=== PATIENT | male | born 1950 | race African-American/Black ===

== ENCOUNTER → 2018-02-08 | Outpatient (CLI) | payer MEDICARE ==
[~2018-02-08] MED LIST: ELET20TA PO; LOVA20TA2 PO; NAPR220C4 PO; SILO8CAP PO
--- NOTE | 2018-02-08 15:03 | RAD ---
Thyroid ultrasound, 02/08/2018: HISTORY: Thyromegaly The right lobe of the gland measures 4.2 x 2.2 x 2.3 cm while the left lobe of the gland measures 4.2 x 1.6 x 2.1 cm. The thyroid gland is mildly heterogeneous. There is a 5 mm smooth oval shaped nodule in the anterior aspect of the left lobe of the gland. There are mildly heterogeneous internal echoes with internal color flow. No internal calcifications are seen. This nodule is wider than tall. It has a benign appearance. There is an oval-shaped hypoechoic nodule in the posterior aspect of the lower pole right lobe of the gland. It measured 12 x 5 x 7 mm. It is wider than tall. Its margins appear smooth. Just superior to this level there is a 6 mm anechoic nodule suggesting a cyst. Both of these right nodules are suboptimally defined due to their far posterior positions. No calcifications are seen. IMPRESSION: Multinodular thyroid gland as described above. Sonographic follow-up of the dominant hypoechoic nodule in the lower pole of the right lobe is suggested. Electronically signed by: Juliano Henry MD (02/08/2018 3:00 PM) [facility]
--- NOTE | 2018-02-08 15:49 | RAD ---
CT of the chest is without contrast 02/08/2018 INDICATION: Thyromegaly COMPARISON STUDY: CT angiography of the chest November 01, 2014 Discussion: Multidetector CT imaging of the chest was performed without the administration of IV contrast. FINDINGS: Heart size is normal. No pericardial effusion is identified. No mediastinal adenopathy is seen. Thyroid is heterogenous in attenuation with a left-sided nodule. Refer to dedicated thyroid ultrasound performed the same day for further evaluation. There is no pneumothorax, pleural effusion, or focal consolidative infiltrate. Multiple small 5 mm and smaller pulmonary nodules are seen throughout the bilateral lungs. Some of these nodules are calcified. Nodules are stable with respect to comparison study. Stability over this time suggests benign etiology such as prior granulomatous disease. Multiple hepatic hypodensities are noted the attenuation characteristics of which suggests hepatic cysts. Left renal cyst is again noted. No acute abnormalities of the upper abdomen are seen. No acute osseous abnormalities are seen. IMPRESSION: 1. No acute cardiopulmonary process or change from prior exam is identified. 2. Multiple small noncalcified pulmonary nodules bilaterally. Other small calcified nodules are seen. The small nodules which have been stable since comparison study suggest a benign etiology such as prior granulomatous disease. CT DOSING PQRS STATEMENT: One or more of the following individualized dose reduction techniques were utilized for this examination: 1. Automated exposure control 2. Adjustment of the mA and/or kV according to patient size 3. Use of iterative reconstruction technique Electronically signed by: Spencer Mccracken MD (02/08/2018 3:46 PM) [facility]
== END | disposition home or self-care (01) ==
LOC: US 12:37
PROVIDERS: ATTEND Nurse Practitioner Family
DX: E04.2 Nontoxic multinodular goiter (principal); R06.02 Shortness of breath; R07.89 Other chest pain; R05 Cough; R91.8 Other nonspecific abnormal finding of lung field; N28.1 Cyst of kidney, acquired; R19.7 Diarrhea, unspecified
CPT/HCPCS: 71250; 76536

== ENCOUNTER 2019-01-31 12:16 | Observation (INO) | payer MEDICARE ==
[~2019-01-31] VITALS: Ht 190.5 cm; Wt 95.7 kg
[~2019-01-31 12:16] MED LIST changes: -SILO8CAP PO; +SILO8CAP2 PO
[2019-01-31 12:42] VITALS: BP 118/75
[2019-01-31] MEDS ORDERED: ACETAMINOPHEN 325 MG TABLET PO PRN (12:45)
[2019-01-31] MEDS ORDERED: NITROGLYCERIN SUBLINGUAL 0.4 MG BOTTLE OF 25. SL PRN (12:45)
[2019-01-31] MEDS ORDERED: ZOLPIDEM 5 MG TABLET. PO PRN (12:45)
[2019-01-31 13:02] LABS: BASO % 1 % (0-3); EOS # 0.2 x10^3/uL (0.0-0.7); EOS % 4 % (0-3); HEMATOCRIT 38.2 % (39.0-53.0); HEMOGLOBIN 12.5 g/dL (13.0-17.5); LYMPH # 0.7 x10^3/uL (1.0-4.8); LYMPH % 16 % (24-48); MEAN CORPUSCULAR HEMOGLOBIN 26 pg (25-35); MEAN CORPUSCULAR HGB CONC 33 g/dL (31-37); MEAN CORPUSCULAR VOLUME 79 fL (79-100); MONO # 0.3 x10^3/uL (0.0-1.1); MONO % 7 % (0-9); NEUT # 3.2 x10^3uL (1.8-7.7); NEUT % 72 % (31-73); PLATELET COUNT 192 x10^3/uL (140-400); RED BLOOD COUNT 4.83 x10^6/uL (4.30-5.70); RED CELL DISTRIBUTION WIDTH 15.3 % (11.5-14.5); WHITE BLOOD COUNT 4.4 x10^3/uL (4.0-11.0)
[2019-01-31 13:15] LABS: ALBUMIN 3.4 g/dL (3.4-5.0); ALBUMIN/GLOBULIN RATIO 1.3 (1.0-1.7); CALCIUM 8.4 mg/dL (8.5-10.1); CREATININE 1.3 mg/dL (0.7-1.3); POTASSIUM 4.3 mmol/L (3.5-5.1); TOTAL BILIRUBIN 0.3 mg/dL (0.2-1.0); TOTAL PROTEIN 6.1 g/dL (6.4-8.2)
--- NOTE | 2019-01-31 13:31 | NUR ---
NSG NOTE; ADMISSION DIRECT ADMIT TO ROOM 123 AT 1230 VIA AMB ACCOMP BY SELF FROM DR JOHNSTON'S OFFICE C/O LEFT UPPER CHEST PAIN INTO LEFT SHOULDER/NECK/HEAD X 5 DAYS
--- NOTE | 2019-01-31 13:33 | NUR ---
NSG NOTE; DR ARAUJO CONSULT CALLED TO MONY BOCANEGRA AT 0623
[2019-01-31] MEDS ORDERED: FLU VAX QS 2019-20 (36MOS+)/PF 0.5 ML SYRINGE. VAX IM ONE (13:45)
[2019-01-31 14:00] VITALS: BP 121/76
[2019-01-31] MEDS: HEPARIN for SUB-Q USE 5,000 UNIT/ML VIAL. SQ SCH ×2 (14:00→20:58)
--- NOTE | 2019-01-31 15:08 | RAD ---
Chest, PA and Lateral: Technique: PA and lateral views of the chest were obtained. History: Chest pain. Comparison: None. Findings: The heart and pulmonary vasculature appear within normal limits. The lungs are clear. The pleural margins are clear. Impression: No acute chest process is seen. Electronically signed by: Vic Morse MD (01/31/2019 3:06 PM) [id number]
--- NOTE | 2019-01-31 17:15 | PDOC2 ---
CONSULT Date of Admission DATE: 01/31/19 TIME: 17:15 Reason for Consult: Chest pain Referring Physician: Dr. Szymanski Chief Complaint Chest pain Source: Chart review, Patient History of Present Illness 68-year-old male presented complaining of left-sided chest and neck pain worse with movement of his neck. He denied any exertional component. He also denied any orthopnea/PND, palpitations or syncope. Cardiovascular: No pertinent hx Family History Negative for premature coronary artery disease ALCOHOL: none Drugs: None Current Medications Current Medications Aspirin (Children'S Aspirin) 325 mg DAILYWBKFT PO ; Start 02/01/19 at 08:00 Nitroglycerin (Nitrostat) 0.4 mg PRN Q5MIN PRN SL CHEST PAIN; Start 01/31/19 at 12:45 Acetaminophen (Tylenol) 650 mg PRN Q6HRS PRN PO PAIN / TEMP; Start 01/31/19 at 12:45 Zolpidem Tartrate (Ambien) 5 mg PRN QHS PRN PO INSOMNIA; Start 01/31/19 at 12:45 Heparin Sodium (Porcine) (Heparin Sodium) 5,000 unit Q8HRS SQ ; Start 01/31/19 at 14:00 Docusate Sodium (Colace) 100 mg DAILY PO ; Start 02/01/19 at 09:00 Influenza Virus Vaccine Quadrival (Afluria Quad 2019-20 (3yr Up) Syringe) 0.5 ml ONCE ONCE VAX IM ; Start 01/31/19 at 13:45; Stop 01/31/19 at 13:48; Status DC Active Scripts Active Reported No Known Medications Prior To Admisstion (Info) Each 1 Each . Allergies: Coded Allergies: Iodinated Contrast Media - IV Dye (Verified Allergy, Unknown, Vomiting, 11/01/14) RX WAS 30 YEARS AGO PSYCHOLOGICAL ROS: No: Hallucinations Eyes: No: Loss of vision HEENT: No: Epistaxis Respiratory: No: Hemoptysis, Shortness of breath Cardiovascular: yes: Chest Pain Gastrointestinal: No: Vomiting, Diarrhea Neurological: No: Seizures Skin: No: Rash General: Alert, No acute distress HEENT: Atraumatic, PERRLA Lungs: Clear to auscultation Heart: Regular rate Abdomen: Soft, No tenderness Extremities: No edema Neuro: Normal speech Psych/Mental Status: Mood NL VITALS Vital Signs Date Time Temp Pulse Resp B/P (MAP) Pulse Ox O2 Delivery O2 Flow Rate FiO2 01/31/19 14:00 97.6 59 20 121/76 (91) 98 Room Air Labs Laboratory Tests Test 01/31/19 12:45 White Blood Count 4.4 x10^3/uL (4.0-11.0) Red Blood Count 4.83 x10^6/uL (4.30-5.70) Hemoglobin 12.5 g/dL (13.0-17.5) Hematocrit 38.2 % (39.0-53.0) Mean Corpuscular Volume 79 fL (79-100) Mean Corpuscular Hemoglobin 26 pg (25-35) Mean Corpuscular Hemoglobin Concent 33 g/dL (31-37) Red Cell Distribution Width 15.3 % (11.5-14.5) Platelet Count 192 x10^3/uL (140-400) Neutrophils (%) (Auto) 72 % (31-73) Lymphocytes (%) (Auto) 16 % (24-48) Monocytes (%) (Auto) 7 % (0-9) Eosinophils (%) (Auto) 4 % (0-3) Basophils (%) (Auto) 1 % (0-3) Neutrophils # (Auto) 3.2 x10^3uL (1.8-7.7) Lymphocytes # (Auto) 0.7 x10^3/uL (1.0-4.8) Monocytes # (Auto) 0.3 x10^3/uL (0.0-1.1) Eosinophils # (Auto) 0.2 x10^3/uL (0.0-0.7) Basophils # (Auto) 0.0 x10^3/uL (0.0-0.2) D-Dimer (Ember) 0.44 mg/L (0.00-0.50) Sodium Level 140 mmol/L (136-145) Potassium Level 4.3 mmol/L (3.5-5.1) Chloride Level 105 mmol/L (98-107) Carbon Dioxide Level 26 mmol/L (21-32) Anion Gap 9 (6-14) Blood Urea Nitrogen 16 mg/dL (8-26) Creatinine 1.3 mg/dL (0.7-1.3) Estimated GFR (Cockcroft-Gault) 66.0 BUN/Creatinine Ratio 12 (6-20) Glucose Level 121 mg/dL (70-99) Calcium Level 8.4 mg/dL (8.5-10.1) Total Bilirubin 0.3 mg/dL (0.2-1.0) Aspartate Amino Transf (AST/SGOT) 10 U/L (15-37) Alanine Aminotransferase (ALT/SGPT) 12 U/L (16-63) Alkaline Phosphatase 61 U/L (46-116) Creatine Kinase 101 U/L (39-308) Troponin I Quantitative < 0.017 ng/mL (0-0.055) Total Protein 6.1 g/dL (6.4-8.2) Albumin 3.4 g/dL (3.4-5.0) Albumin/Globulin Ratio 1.3 (1.0-1.7) Assessment/Plan Chest pain with atypical features and most probably musculoskeletal. Myocardial infarction has been ruled out. Check 2-D echo to assess LV function and rule out wall motion abnormalities. Further ischemic evaluation in the form of stress test could be considered as an outpatient. Thank you for your consultation. PARTH RICE MD Jan 31, 2019 17:15
--- NOTE | 2019-01-31 17:33 | EKG ---
[address] [address] Test Date: 2019-01-31 Test Time: 17:09:35 Pat Name: JEANNETTE VELA Department: Room: 123 A Gender: M Test Analyst: : [id number] Requested By: LESTER JOHNSTON Order Number: [id number] Reading MD: Parker Aguirre MD Measurements Intervals Cisco Rate: 53 P: 33 DC: 168 QRS: 34 QRSD: 90 T: 62 QT: 450 QTc: 425 Interpretive Statements SINUS RHYTHM Electronically Signed On 02-09-2019 9:19:10 CDT by Parker Aguirre MD
[2019-01-31 19:50] VITALS: BP 116/75
[2019-01-31 23:06] VITALS: BP 133/72
[2019-02-01] MEDS: HEPARIN for SUB-Q USE 5,000 UNIT/ML VIAL. SQ SCH (06:00)
[2019-02-01 06:45] VITALS: BP 132/77
[2019-02-01] MEDS ORDERED: ASPIRIN 81 MG TAB.CHEW PO SCH (08:00)
[2019-02-01 08:02] LABS: BACTERIA,URINE 0 /HPF (0-FEW); BILIRUBIN,URINE NEG (NEG); CLARITY,URINE CLEAR; COLOR,URINE YELLOW; GLUCOSE,URINE NEG (NEG); NITRITE,URINE NEG (NEG); RBC,URINE 0 /HPF (0-2); SPERM,URINE PRESENT /HPF; UROBILINOGEN,URINE 0.2 mg/dL (0.2 mg/dL); WBC,URINE 0 /HPF (0-4)
[2019-02-01] MEDS ORDERED: DOCUSATE SODIUM 100 MG CAPSULE PO SCH (09:00)
--- NOTE | 2019-02-01 09:47 | CARD ---
MR#: [id number] Date of Study: 02/01/2019 Ordering Physician: LESTER JOHNSTON, Referring Physician: LESTER JOHNSTON, Tech: Katerina Denise JALIL APPROVED REPORT EXAM: Two-dimensional and M-mode echocardiogram with Doppler and color Doppler. Other Information Quality : GoodHR: 60bpm Rhythm : NSR INDICATION Chest Pain 2D DIMENSIONS RVDd3.0 (2.9-3.5cm)Left Atrium(2D)3.9 (1.6-4.0cm) IVSd1.2 (0.7-1.1cm)Aortic Root(2D)3.0 (2.0-3.7cm) LVDd4.1 (3.9-5.9cm)PWd1.1 (0.7-1.1cm) LVDs2.9 (2.5-4.0cm)FS (%) 30.2 % SV43.8 mlLVEF(%)57.9 (>50%) M-Mode DIMENSIONS Left Atrium(MM)3.92 (2.5-4.0cm)Aortic Root2.86 (2.2-3.7cm) Aortic Valve AoV Peak Garland.110.5cm/sAoV VTI24.6cm AO Peak GR.4.9mmHgAO Mean GR.3mmHg HAYDEN (VTI)3.20cm2 Mitral Valve MV E Zbfqbrnm72.5cm/sMV DECEL GCRK182fx MV A Jqevjhjg83.0cm/sE/A Ratio0.8 MV A Brjpjoht710ry Tricuspid Valve TR P. Dtfpoaen393sm/sRAP KDWQXDKW5loUj TR Peak Gr.53oxCeNAAF44mgHd LEFT VENTRICLE The left ventricle is normal size. There is mild concentric left ventricular hypertrophy. The left ve ntricular systolic function is normal. The Ejection Fraction is 55-60%. There is normal LV segmental wall motion. Transmitral Doppler flow pattern is Grade I-abnormal relaxation pattern. RIGHT VENTRICLE The right ventricle is normal size. There is normal right ventricular wall thickness. The right ventr icular systolic function is normal. ATRIA The left atrium size is normal. The right atrium size is normal. The interatrial septum is intact wit h no evidence for an atrial septal defect or patent foramen ovale as noted on 2-D or Doppler imaging. AORTIC VALVE The aortic valve is calcified but opens well. The aortic valve is trileaflet. Doppler and Color Flow revealed no significant aortic regurgitation. There is no significant aortic valvular stenosis. There is no aortic valvular vegetation. MITRAL VALVE The mitral valve is normal in structure and function. There is no evidence of mitral valve prolapse. There is no mitral valve stenosis. Doppler and Color Flow revealed no mitral valve regurgitation note d. TRICUSPID VALVE The tricuspid valve is normal in structure and function. Doppler and Color Flow revealed mild tricusp id regurgitation. There is no tricuspid valve stenosis. GREAT VESSELS The aortic root is normal in size. PERICARDIAL EFFUSION There is no evidence of significant pericardial effusion. Critical Notification Critical Value: No <Conclusion> The left ventricular systolic function is normal. The Ejection Fraction is 55-60%. There is normal LV segmental wall motion. Transmitral Doppler flow pattern is Grade I-abnormal relaxation pattern. Doppler and Color Flow revealed mild tricuspid regurgitation. There is no evidence of significant pericardial effusion. Signed by : Jorge Adame, Electronically Approved : 02/01/2019 09:47:34
[2019-02-01 10:45] VITALS: BP 106/66
[2019-02-01] MEDS ORDERED: ASPI-630 PO (11:20)
[2019-02-01] MEDS ORDERED: ACET325T9 PO (11:20)
[2019-02-01] MEDS ORDERED: DOCU-109 PO (11:20)
--- NOTE | 2019-02-01 12:07 | NUR ---
Pt verbalizes and understands condition at hospital, pt able to state needs and desires. Pt up as tolerated, non skid socks applied, bed in lowest position. Pt had Echo this morning. Dr. Szymanski discharged pt. Pt instructed to follow up with Dr. Adame to schedule cardiac stress test and carotid doppler scan. Discharge instructions given.
--- NOTE | 2019-02-01 12:09 | NUR ---
Discharge Note: JEANNETTE VELA Discharge instructions and discharge home medications reviewed with Patient and a copy given. All questions have been answered and understanding verbalized. The following instructions and handouts were given: Follow up with Dr. Adame for cardiac stress test and carotid artery scan. Discontinued lines and drains: Discontinued IV, pressure dressing applied, no apparent problems, catheter tip dry and intact. Patient discharged to home.
[2019-02-01 13:58] LABS: THYROID STIM HORMONE (TSH) 1.986 uIU/mL (0.358-3.740)
--- NOTE | 2019-02-06 17:01 | DS ---
DATE OF DISCHARGE: 02/01/2019 HOSPITAL COURSE: A 68-year-old gentleman came in with severe left-sided chest pain radiating to his neck. The patient also denied nausea, vomiting, or diaphoresis. The patient was admitted for rule out [place] protocol. He made good progress. He was slightly anemic at 12.5 and 38. Chemistries demonstrate cardiac enzymes were negative. His triglycerides were elevated at 290, total cholesterol of 228 and LDL 102 with an HDL of 68. Thyroid, TSH was normal. Blood sugar slightly elevated at 121, nonfasting. Liver enzymes are actually on the low side. The patient made excellent progress. He was seen by Dr. Adame. He will follow up with him as a stress test as an outpatient. IMPRESSION: Otherwise, chest pain, unknown etiology, hypercholesterolemia, hypertriglyceridemia. PLAN: The patient will be discharged home on a heart healthy diet, decreased activity, and follow up with Dr. Adame as an outpatient. LESTER JOHNSTON MD DR: VIKA/deacon JOB#: [id number] / [id number]
== END 2019-02-01 12:12 | disposition home or self-care (01) ==
LOC: 1 SOUTH 12:16
PROVIDERS: ADMIT Family Medicine; ATTEND Family Medicine
DX: R07.89 Other chest pain (principal); D64.9 Anemia, unspecified; E78.00 Pure hypercholesterolemia, unspecified; E78.1 Pure hyperglyceridemia; Z23 Encounter for immunization
CPT/HCPCS: 36415; 71046; 80053; 80061; 81001; 82550; 84443; 84484; 85025; 85379; 90471; 90686; 93005; 93306; G0378; G0379

== ENCOUNTER → 2019-02-14 | Outpatient (CLI) | payer MEDICARE ==
[2019-02-01 10:45] VITALS: BP 106/66
[~2019-02-14] MED LIST changes: +ACET325T9 PO; +ASPI-630 PO; +DOCU-109 PO; +LEVE500T56 PO; +PRIM50TA24 PO
--- NOTE | 2019-02-15 08:53 | RAD ---
3 view study of the third digit of the right hand Clinical indications: Finger pain. FINDINGS: No acute fracture or dislocation or lytic process is evident. No radiopaque foreign body is evident. IMPRESSION: No acute fracture. Electronically signed by: Scott Oliver MD (02/15/2019 8:50 AM) [facility]
== END | disposition home or self-care (01) ==
LOC: DXRAD 12:18
PROVIDERS: ATTEND Orthopaedic Surgery Sports Medicine
DX: M79.644 Pain in right finger(s) (principal)
CPT/HCPCS: 73140

== ENCOUNTER → 2019-02-24 | Outpatient (CLI) | payer MEDICARE ==
[2019-02-01 10:45] VITALS: BP 106/66
[~2019-02-24] MED LIST changes: -LEVE500T56 PO; -PRIM50TA24 PO
[2019-02-24] MEDS: REGADENOSON 0.4 MG/5 ML DISP.SYRIN. IV ONE (10:00)
--- NOTE | 2019-02-24 13:19 | RAD ---
MR#: [id number] Date of Study: 02/24/2019 Ordering Physician: PARTH RICE Referring Physician: FRACISCO ROMERO Tech: RT Herlinda (R) (N) APPROVED REPORT Test Type: Pharmacological Stress Nurse/Tech: Ruthie Hong Test Indications: Chest pain Cardiac History: No known cardiac Medical History: See Electronic Medical Record Resting Heart Rate: 48 bpm Resting Blood Pressure: 128/70mmHg Pharm. Details Pharmacologic stress testing was performed using 0.4mg per 5ml of regadenoson given intravenously ove r 7-10 seconds. POST EXERCISE Reason for Termination: Infusion complete Max Blood Pressure: 125/64mmHg Blood Pressure response to exercise: Normal blood pressure response during stress. Heart Rate response to exercise: Normal Chest Pain: No. Arrhythmia: No. ST Change: No. INTERPRETATION Stress EKG Conclusion: The resting EKG shows sinus rhythm, PVCs and nonspecific ST segment changes. Stress EKG shows no significant changes from baseline. No EKG evidence of stressed induced ischemia Imaging Protocol IMAGE PROTOCOL: Rest Tc-99m/stress Tc-99m 1 day Rest: Stress: Viability: Radiopharm.Tc99m FzzrvlubaQp96h Sestamibi Bvau10jQc 32mCi Duration 15min. 15min. Img Date 02/24/2019 02/24/2019 Inj-Img Yrfr60blc. 60min. Rest Admin Site:IV - Right AntecubitalAdministrator: RT Herlinda (R)(N) Stress Admin Site: IV - Right AntecubitalAdministrator: RT Herlinda (R)(N) STRESS DATA End Diast. Vol.113.0mlAv. Heart Rate72.0bpm End Syst. Vol.30.0mlCO Index BSA6.0L/min Myocardial Hqtf948.0gEject. Qpntgito77.0% Stress Rates Pk. Fill Rate2.89EDV/secLVtime Pk. Fill 232.99msec Pk. Empty Rate4.33ESV/secLVtime Pk. Faudw109.18msec 05/06 Pk. Fill1.03EDV/sec Stress Scores Regional WT0.00Summed WT3.00 Regional WM0.00Summed WM1.00 LV Perfusion The stress scans showed no significant defects. The rest scans showed slight septal thinning. Nuclear imaging shows no reversible ischemia or infarct. Wall Motion Left ventricular systolic function is normal with no regional wall motion abnormalities and an ejecti on fraction of greater than 70%. LV Perf. Quant 17 Seg. SSS0.00 17 Seg. SRS5.00 17 Seg. SDS0.00 Stress Defect Extent (% LAD)0.00Rest Defect Extent (% LAD)3.80Rev. Defect Extent (% LAD)0.00 Stress Defect Extent (% LCX) 0.00Rest Defect Extent (% LCX)0.00Rev. Defect Extent (% LCX)0.00 Stress Defect Extent (% RCA)0.00Rest Defect Extent (% RCA)8.90Rev. Defect Extent (% RCA)0.00 Stress Defect Extent (% VALERIANO)0.00Rest Defect Extent (% VALERIANO)8.30Rev. Defect Extent (% VALERIANO)0.00 Conclusion 1. No EKG evidence of stressed induced ischemia. 2. Nuclear imaging shows no reversible ischemia or infarct. 3. Normal left ventricular systolic function with an ejection fraction of greater than 70%. 4. Low risk Lexiscan nuclear stress test. Signed by : Chuck Domínguez MD Electronically Approved : 02/24/2019 13:19:23
== END | disposition home or self-care (01) ==
LOC: NM 08:14
PROVIDERS: ATTEND Internal Medicine Cardiovascular Disease
DX: I49.3 Ventricular premature depolarization (principal); R07.9 Chest pain, unspecified
CPT/HCPCS: 78452; 93017; A9500; J2785

== ENCOUNTER 2019-03-12 07:22 | Inpatient (IN) | payer MEDICARE ==
[~2019-03-12] VITALS: Ht 190.5 cm; Wt 94.5 kg
[2019-03-12] MEDS ORDERED: IV NORMAL SALINE 1,000ML 1,000 ML IV ONE ×2 (08:00→09:45)
[2019-03-12 08:08] LABS: BASO % 1 % (0-3); EOS # 0.2 x10^3/uL (0.0-0.7); EOS % 3 % (0-3); HEMATOCRIT 41.8 % (39.0-53.0); HEMOGLOBIN 13.5 g/dL (13.0-17.5); LYMPH # 1.6 x10^3/uL (1.0-4.8); LYMPH % 29 % (24-48); MEAN CORPUSCULAR HEMOGLOBIN 25 pg (25-35); MEAN CORPUSCULAR HGB CONC 32 g/dL (31-37); MEAN CORPUSCULAR VOLUME 77 fL (79-100); MONO # 0.6 x10^3/uL (0.0-1.1); MONO % 10 % (0-9); NEUT # 3.3 x10^3uL (1.8-7.7); NEUT % 58 % (31-73); PLATELET COUNT 220 x10^3/uL (140-400); RED BLOOD COUNT 5.42 x10^6/uL (4.30-5.70); RED CELL DISTRIBUTION WIDTH 14.9 % (11.5-14.5); WHITE BLOOD COUNT 5.7 x10^3/uL (4.0-11.0)
--- NOTE | 2019-03-12 08:12 | PHYS DOC ---
Past History Additional Past Medical Histor: AV malformation Additional Past Surgical Histo: Surgery for AV malformation Smoking: Non-smoker Alcohol Use: None Drug Use: None Adult General Chief Complaint Chief Complaint: MULTIPLE COMPLAINTS HPI HPI 68-year-old male presents with report of 2 day history of generalized weakness, malaise, and body aches. Reports having some muscle aches from his back down into his legs bilaterally. Patient reports was seen by his PCP yesterday and given a shot of Toradol with interval improvement. Reports had recently gotten over some "gastroenteritis ". Patient had had several days of nausea and vomiting which is now resolved. Patient reports chills today with some shortness of air. Denies known sick contacts. Denies leg swelling or calf tenderness. Denies trauma. Review of Systems Review of Systems Constitutional: Denies fever; reports chills Eyes: Denies redness or eye pain HENT: Denies nasal congestion or sore throat Respiratory: Denies cough; reports shortness of breath Cardiovascular: Denies chest pain or palpitations GI: Denies abdominal pain, nausea, or vomiting : Denies dysuria or hematuria Musculoskeletal: Reports back pain and muscle ache Integument: Denies rash or skin lesions Neurologic: Denies headache, focal weakness or sensory changes Complete systems were reviewed and found to be within normal limits, except as documented in this note. Current Medications Current Medications Current Medications Medications (Trade) Dose Ordered Sig/Britany Start Time Stop Time Status Last Admin Dose Admin Ketorolac Tromethamine (Toradol 15mg Vial) 10 mg 1X ONCE 03/12/19 08:15 03/12/19 08:16 Orphenadrine Citrate (Norflex) 60 mg 1X ONCE 03/12/19 08:15 03/12/19 08:16 Sodium Chloride 1,000 ml @ 1,000 mls/hr 1X ONCE 03/12/19 08:00 03/12/19 08:59 Allergies Allergies Allergies Coded Allergies Type Severity Reaction Last Updated Verified Iodinated Contrast Media Allergy Intermediate Vomiting 02/01/19 Yes Physical Exam Physical Exam Constitutional: Well developed, well nourished, uncomfortable, non-toxic appearance HENT: Normocephalic, atraumatic, oropharynx moist Eyes: PERRL, EOMI, conjunctiva normal, no discharge Neck: Normal range of motion, no tenderness, supple, no meningeal signs Cardiovascular: Heart rate normal, regular rhythm Lungs & Thorax: Bilateral breath sounds clear to auscultation, no wheezing Abdomen: Soft, no tenderness Skin: Warm, dry, no erythema, no rash Back: Left lumbar paraspinal tenderness, no CVA tenderness Extremities: Tenderness with ROM intact, no edema Neurologic: Alert and oriented X 3, weakness with bilateral leg raise, normal sensory function Psychologic: Affect normal, judgement normal Current Patient Data Lab Results Laboratory Tests Test 03/12/19 07:39 White Blood Count 5.7 x10^3/uL (4.0-11.0) Red Blood Count 5.42 x10^6/uL (4.30-5.70) Hemoglobin 13.5 g/dL (13.0-17.5) Hematocrit 41.8 % (39.0-53.0) Mean Corpuscular Volume 77 fL (79-100) L Mean Corpuscular Hemoglobin 25 pg (25-35) Mean Corpuscular Hemoglobin Concent 32 g/dL (31-37) Red Cell Distribution Width 14.9 % (11.5-14.5) H Platelet Count 220 x10^3/uL (140-400) Neutrophils (%) (Auto) 58 % (31-73) Lymphocytes (%) (Auto) 29 % (24-48) Monocytes (%) (Auto) 10 % (0-9) H Eosinophils (%) (Auto) 3 % (0-3) Basophils (%) (Auto) 1 % (0-3) Neutrophils # (Auto) 3.3 x10^3uL (1.8-7.7) Lymphocytes # (Auto) 1.6 x10^3/uL (1.0-4.8) Monocytes # (Auto) 0.6 x10^3/uL (0.0-1.1) Eosinophils # (Auto) 0.2 x10^3/uL (0.0-0.7) Basophils # (Auto) 0.0 x10^3/uL (0.0-0.2) EKG EKG @0736 NSR at 75bpm, NO ST elevation, baseline artifact, QRS 84ms, QT/QTc 422/474ms Radiology/Procedures Radiology/Procedures PROCEDURE: CT HEAD WO CONTRAST CT HEAD WO CONTRAST History: Altered mental status Comparison: None. Technique: Noncontrast CT imaging was performed of the head. Exposure: One or more of the following individualized dose reduction techniques were utilized for this examination: 1. Automated exposure control 2. Adjustment of the mA and/or kV according to patient size 3. Use of iterative reconstruction technique. Findings: There has been right parietal temporal craniotomy. No acute extra-axial or parenchymal hemorrhage is identified. There is no significant intra-axial mass effect, midline shift, or extra-axial fluid collection. There is some scattered ill-defined low-density of the supratentorial parenchyma bilaterally. The solo-white differentiation of the major vascular territories is preserved. The ventricles, sulci, and cisterns are within normal limits in size and configuration. The mastoid air cells and the visualized paranasal sinuses are aerated. No acute calvarial abnormality is identified. Impression: 1. No acute intracranial hemorrhage is identified. There has been right parietal temporal craniotomy. There is some scattered ill-defined low-density of the supratentorial parenchyma, nonspecific findings more commonly due to chronic microvascular ischemic disease in a patient this age. Electronically signed by: Leif Diaz MD (03/12/2019 8:23 AM) [facility] PROCEDURE: CHEST AP ONLY CHEST AP ONLY 03/12/2019 7:56 AM INDICATION: Shortness of air COMPARISON: 01/31/2019 TECHNIQUE: Portable frontal view of the chest is provided. FINDINGS: The cardiomediastinal silhouette is similar in appearance. Lungs are clear. There are no significant pleural effusions. There is no pulmonary vascular congestion. No pneumothorax. IMPRESSION: There is no acute cardiopulmonary process. Electronically signed by: Gilma Cerna MD (03/12/2019 8:34 AM) [facility] Course & Med Decision Making Course & Med Decision Making Pertinent Labs and Imaging studies reviewed. (See chart for details) Patient presents with 2 day history of generalized weakness, malaise, and body aches. Denies trauma. Patient seen by PCP yesterday and given shot of Toradol with interval improvement. Reports symptoms now worse this morning. Afebrile. Labs obtained and posted to chart. Hypokalemia addressed. Renal insufficiency noted. IVF hydration given. EKG stable. Chest x-ray without acute process. CT head stable. Patient requiring admission for further evaluation and treatment. Discussed with Dr. Johnston (hospitalist) who is in agreement with admission. Requests consultation to Dr. Hart (neurology). Discussed case with Dr. Hart, who request to give Keppra 1 gram IVPB. Discussed findings and plan with patient and family, who acknowledge understanding and agreement. Dragon Disclaimer Dragon Disclaimer This electronic medical record was generated, in whole or in part, using a voice recognition dictation system. Departure Departure: Impression: Primary Impression: Seizure Additional Impressions: Renal insufficiency Hypokalemia Disposition: ADMITTED INPATIENT Admitting Physician: Lester Johnston Condition: STABLE Referrals: LESTER JOHNSTON MD (PCP) Problem Qualifiers POP PALMA DO Mar 12, 2019 08:11
[2019-03-12] MEDS ORDERED: ORPHENADRINE CITRATE 60 MG/2 ML VIAL. IV ONE (08:15)
[2019-03-12] MEDS ORDERED: KETOROLAC 15 MG/ML VIAL. IVP ONE (08:15)
--- NOTE | 2019-03-12 08:26 | RAD ---
CT HEAD WO CONTRAST History: Altered mental status Comparison: None. Technique: Noncontrast CT imaging was performed of the head. Exposure: One or more of the following individualized dose reduction techniques were utilized for this examination: 1. Automated exposure control 2. Adjustment of the mA and/or kV according to patient size 3. Use of iterative reconstruction technique. Findings: There has been right parietal temporal craniotomy. No acute extra-axial or parenchymal hemorrhage is identified. There is no significant intra-axial mass effect, midline shift, or extra-axial fluid collection. There is some scattered ill-defined low-density of the supratentorial parenchyma bilaterally. The solo-white differentiation of the major vascular territories is preserved. The ventricles, sulci, and cisterns are within normal limits in size and configuration. The mastoid air cells and the visualized paranasal sinuses are aerated. No acute calvarial abnormality is identified. Impression: 1. No acute intracranial hemorrhage is identified. There has been right parietal temporal craniotomy. There is some scattered ill-defined low-density of the supratentorial parenchyma, nonspecific findings more commonly due to chronic microvascular ischemic disease in a patient this age. Electronically signed by: Leif Diaz MD (03/12/2019 8:23 AM) [facility]
[2019-03-12 08:32] LABS: ALBUMIN 3.7 g/dL (3.4-5.0); ALBUMIN/GLOBULIN RATIO 1.1 (1.0-1.7); CALCIUM 8.8 mg/dL (8.5-10.1); CREATININE 1.6 mg/dL (0.7-1.3); MAGNESIUM 2.1 mg/dL (1.8-2.4); POTASSIUM 3.3 mmol/L (3.5-5.1); TOTAL BILIRUBIN 0.6 mg/dL (0.2-1.0)
--- NOTE | 2019-03-12 08:37 | RAD ---
CHEST AP ONLY 03/12/2019 7:56 AM INDICATION: Shortness of air COMPARISON: 01/31/2019 TECHNIQUE: Portable frontal view of the chest is provided. FINDINGS: The cardiomediastinal silhouette is similar in appearance. Lungs are clear. There are no significant pleural effusions. There is no pulmonary vascular congestion. No pneumothorax. IMPRESSION: There is no acute cardiopulmonary process. Electronically signed by: Gilma Cerna MD (03/12/2019 8:34 AM) [facility]
[2019-03-12] MEDS ORDERED: POTASSIUM CHLORIDE 20 MEQ TABLET.ER. PO ONE (11:00)
[2019-03-12] MEDS ORDERED: ONDANSETRON PF 4 MG/2 ML VIAL. IV PRN (11:15)
[2019-03-12] MEDS ORDERED: levETIRAcetam 500 MG/5 ML VIAL IV ONE (11:27)
[2019-03-12] MEDS ORDERED: IV NORMAL SALINE 100ML 100 ML ONE (11:27)
[2019-03-12 12:03] VITALS: BP 139/75
[2019-03-12 12:11] LABS: BACTERIA,URINE 0 /HPF (0-FEW); BILIRUBIN,URINE NEG (NEG); CLARITY,URINE CLOUDY; COLOR,URINE YELLOW; GLUCOSE,URINE NEG (NEG); NITRITE,URINE NEG (NEG); RBC,URINE TNTC /HPF (0-2); UROBILINOGEN,URINE 0.2 mg/dL (0.2 mg/dL)
[2019-03-12] MEDS ORDERED: oxyCODONE/APAP 5/325 1 TAB TABLET PO PRN (13:15)
--- NOTE | 2019-03-12 13:21 | NUR ---
Pt was admitted to ICU bed 2; arrived to unit via EMS around noon. Pt is admitted to Dr. Szymanski's service for a diagnosis of seizures. Pt had an AVM repair about 30 years ago and had a couple of seizures after that instance but has not had a seizure since. Pt arrived to the ED this am c/o leg pain that has been bothering him for the past couple of days. He went to Dr. Szymanski's office yesterday and received a shot of Toradol. Pt's states he was weak, shaky, and not talking clearly this morning, as well as still c/o lots of leg pain, so she brought in to be seen in the ED. Pt also stated he was feeling a little short of breath on arrival. Pt was given Toradol and Norflex in the ED. Pt had a witnessed tonic-clonic seuizure that last about 1 min. Pt was given a total of 2mg IV Ativan. See ED charting for details. Pt was alert and oriented upon arrival to ICU. Dr. Hart here to see pt on rounds and gave orders for Keppra and Ativan. Dr. Szymanski was called for pain medication orders; see chart for details. Pt and pt's confirmed Full Code status. Pt was given K-pad to help with pain in legs but denies relief. Pt's family is at bedside. Will continue to monitor.
[2019-03-12] MEDS: oxyCODONE/APAP 5/325 1 TAB TABLET PO PRN ×2 (13:41→18:43)
[2019-03-12 15:15] VITALS: BP 132/74
[2019-03-12] MEDS ORDERED: PIP/TAZO PER PHARMACY MC PRN (17:15)
[2019-03-12] MEDS ORDERED: VANCOMYCIN 1.5 GM in IV NORMAL SALINE 500ML 500 ML IV SCH (17:30)
[2019-03-12] MEDS: VANCOMYCIN PER PHARMACY MC PRN (17:40)
--- NOTE | 2019-03-12 17:44 | NUR ---
Pharmacy Vancomycin Dosing Note S:Consulted to monitor and dose vancomycin started 03/12/19. O:JEANNETTE VELA is a 68 year old M with Empiric, . Height: 6 feet, 3 inches Weight: 94.415892 kg Panther Burn Body Weight: 250.10 Adjusted Body Weight: 187.98 Dosing Weight: Actual Other Antibiotics: ZOSYN 3.375GM IV Q6HR LABS: Last BUN: 24 Last Creatinine: 1.6 Creatinine Clearance: 53.85 Last WBC: 5.7 Vancomycin Dosing: Loading Dose: 2000 mg x1 Dosing Weight: Actual Target Trough: 10-20 A: Based on: Actual weight, renal function and indication P: 1. Begin Vancomycin 1500 mg IV q24h 2. Follow up Trough level on 03/14/19 at 1730 3. Pharmacy will continue to monitor, follow and adjust therapy as needed. NOEL CBARERA, 03/12/19 [id number]
[2019-03-12] MEDS ORDERED: VANCOMYCIN 2 GM in IV NORMAL SALINE 500ML 500 ML IV ONE (18:00)
[2019-03-12] MEDS: IV NORMAL SALINE 1,000ML 1,000 ML IV SCH (18:00)
[2019-03-12 18:22] LABS: INFLUENZA A PATIENT NEGATIVE (NEGATIVE); INFLUENZA B PATIENT NEGATIVE (NEGATIVE)
--- NOTE | 2019-03-12 19:15 | HP ---
ADMIT DATE: 03/12/2019 HISTORY OF PRESENT ILLNESS: A 68-year-old -M[place] male with 2-day history of feeling generalized weakness, malaise, body aches, reports having some muscle aches from his back down to his legs. The patient has been seen; however, had shots of Toradol, which seemed to help him. He has basically had seizure activity while in the Emergency Room. It was documented grand mal seizures. 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 The patient is not able to give much of a history as he is very, very sedated. As I am aware, Dr. Hart has already apparently seen him for the Neurology aspect of the situation. In any case, the patient was admitted for a number of reasons, generalized weakness, malaise, pretty much a decreased level of consciousness was reported as well as other medical issues that need to be resolved. PAST MEDICAL HISTORY: Includes that of AVM repair 30 years ago. He had seizures today, but not for 20 years, hypercholesterolemia; urinary retention, resolved with surgery; orthopedic surgery, right shoulder repair, bilateral knee arthroscopic. IMMUNIZATIONS: He has had influenza vaccination. FAMILY HISTORY: Father with multiple myeloma, brother with prostate cancer, mother with pancreatic cancer. ALLERGIES: The patient has allergy to IODINATED CONTRAST MEDIA. CODE STATUS: Otherwise, the patient is a full code. SOCIAL HISTORY: Denies smoking, alcohol or drug use. MEDICATIONS: The patient's medications were reconciled. REVIEW OF SYSTEMS: The patient is barely arousable to talk, but he does answer some basic questions, but basically he does not eat. He reports no nausea or vomiting, no abdominal pain, chest pain per se, just does not feel good; very, very sleepy, almost postictal in nature. PHYSICAL EXAMINATION: GENERAL: The patient otherwise on exam is a very pleasant -Moldovan gentleman, decreased level of consciousness. VITAL SIGNS: Blood pressure 110/70, respiratory rate 30, pulse 73, afebrile. HEENT: The patient's head was atraumatic, normocephalic. Eyes: PERRLA without jaundice. The mouth and throat were normal. NECK: Supple. Able to touch chin to chest. LUNGS: Diminished, but clear throughout. CARDIOVASCULAR: Regular sinus rhythm. ABDOMEN: Soft, nontender, no rebound or guarding. Positive bowel sounds. No hepatosplenomegaly was noted. EXTREMITIES: No clubbing, cyanosis, nor edema. NEUROLOGIC: The patient was barely arousable and at the same time the reflexes were diminished. There was some decrease in muscle tone in the left leg itself. LABORATORY DATA: The blood count itself was basically unremarkable. His chemistries were basically with slight low potassium, elevated creatinine. Lactic acid was elevated, may be from seizure activity. Coag was up to 1.3. We will get a V/Q scan. Influenza studies were negative. The patient did have blood in his urine, but apparently they tried to put a [place] catheter in, but was unsuccessful. IMPRESSION: Change in mental status, recurrent grand mal seizures, history of arteriovenous malformation repair, tremors, generalized weakness to the lower extremities, rule out Guillain-Bonner syndrome, hematuria secondary to urinary catheter. PLAN: The patient will be continued to be monitored carefully, make further evaluation on him as indicated. He will be in the unit, placed on IV antibiotic therapy. He has been running a temperature, placed on Lovenox and monitor any change in mental status, discussed with family, especially his . LESTER JOHNSTON MD DR: VIKA/deacon JOB#: [id number] / [id number]
[2019-03-12 19:17] LABS: BARBITURATES NEG (NEG); BENZODIAZEPINES NEG (NEG); CANNABINOIDS NEG (NEG); COCAINE NEG (NEG); METHADONE NEG (NEG); OPIATES NEG (NEG); PHENCYCLIDINE NEG (NEG)
[2019-03-12 19:20] LABS: AMPHETAMINE/METHAMPHETAMINE NEG (NEG)
[2019-03-12 19:40] VITALS: BP 145/86
--- NOTE | 2019-03-12 19:43 | EKG ---
[address] [address] Test Date: 2019-03-12 Test Time: 07:36:38 Pat Name: JEANNETTE VELA Department: Room: Gender: M Roll Hand: : 1950 Requested By: POP PALMA Order Number: [id number] Reading MD: Measurements Intervals [place] Rate: 75 P: 111 [place]: 140 QRS: 54 QRSD: 84 T: 74 QT: 422 QTc: 474 Interpretive Statements SINUS RHYTHM T ABNORMALITY IN HIGH LATERAL LEADS PROLONGED QT ABNORMAL ECG RI6.01 No previous ECG available for comparison
[2019-03-12] MEDS: levETIRAcetam 500 MG TABLET PO SCH (20:58)
[2019-03-12] MEDS: ENOXAPARIN ** NOTE DOSE ** SYRINGE SQ SCH (20:59)
--- NOTE | 2019-03-12 21:03 | RAD ---
PQRS Compliance statement: One or more of the following individualized dose reduction techniques were utilized for this examination: 1. Automated exposure control. 2. Adjustment of the mA and/or kV according to patient size. 3. Use of iterative reconstruction technique. Indication:Abdominal pain. TECHNIQUE: CT abdomen and pelvis without IV contrast with multiplanar reformats. COMPARISON: None FINDINGS: Limited evaluation of solid abdominal and pelvic organs due to lack of IV contrast. Heart is normal in size. No pericardial or pleural effusion. Clear lung bases. Multiple low attenuating lesions are seen in the liver demonstrating fluid density, the largest in segment 4A measuring 5.8 x 4.6 cm. Spleen is nonenlarged. No radiopaque gallstones. Noncontrast appearance of the pancreas is within normal limits. Abdomen glands demonstrate no nodularity. Multiple bilateral low attenuating lesions are seen in the kidneys the largest on the left side measuring 5 cm. No nephrolithiasis or hydronephrosis. No enlarged retroperitoneal or pelvic adenopathy. The prostate and seminal vesicles show no large mass. No bowel obstruction. Normal appendix. Urinary bladder demonstrates no radiopaque stone. No pneumoperitoneum. No suspicious bony lesion. IMPRESSION: Limited evaluation of solid abdominal and pelvic organs due to lack of IV contrast. 1. No nephrolithiasis or hydronephrosis. 2. Multiple liver and kidney lesions most likely simple cysts as some of these were seen on previous CT from 2011. However, Lack of IV contrast limits evaluation for RCC. 3. No bowel obstruction. Normal appendix. Electronically signed by: Sharad Yanez DO (03/12/2019 9:00 PM) [facility]
[2019-03-12] MEDS: PIPERACILLIN/TAZOBACTAM 3.375 GM in IV NORMAL SALINE 50ML 50 ML IV SCH (21:40)
[2019-03-12 23:07] VITALS: BP 138/66
--- NOTE | 2019-03-13 00:50 | CONS ---
DATE OF CONSULTATION: NEUROLOGY CONSULTATION REFERRING PHYSICIAN: Dr. Szymanski. REASON FOR CONSULTATION: New onset of seizure. HISTORY OF PRESENT ILLNESS: This is a 68-year-old right-handed -Tongan male who was admitted through Emergency Room today after he presented with 2-day history of generalized weakness, malaise, intermittent nausea and vomiting. He was seen by his PCP yesterday because of generalized malaise and he was given injection of Nubain and Toradol, the patient felt better. He apparently is suffering from gastroenteritis in the last few days. He denies diarrhea or constipation. This morning, the patient was found by his having excessive tremors of the upper and lower extremities, then his body started jerking. The patient was somewhat confused and disoriented. EMS was activated and transferred the patient to Emergency Room. While he was there, he had generalized tonic-clonic seizure witnessed by ER physician, followed by postictal confusion. The patient did not recall the events. Initial nonenhanced head CT scan revealed evidence of right temporoparietal craniotomy with small vessel ischemic changes, otherwise no acute intracranial bleed or process. The patient was loaded with 1 gram of Keppra intravenously. Since that time, he has not had any recurrent seizure. According to his , the patient has been having tremor of the hands for many years. He complains of lower back pain radiating into the lower extremities and increasing tremor of the upper extremities. The tremor described as chills. He denies chest pain, but he complains of intermittent shortness of breath. He denies urinary incontinence. PAST MEDICAL HISTORY: Significant for chronic tremor of the upper extremities. Recently diagnosed with carpal tunnel syndrome, required surgery. History of AVM diagnosed 30 years ago, but was not found during craniotomy. Hyperlipidemia. PAST SURGICAL HISTORY: Right shoulder surgery and bilateral knee surgeries. FAMILY HISTORY: Father had multiple myeloma. Mother had pancreatic cancer and brother had prostate cancer. SOCIAL HISTORY: The patient is . He denies smoking, alcohol drinking, or illicit drug use. CURRENT MEDICATIONS: The patient was given 1 gram of Keppra intravenously in the Emergency Room along with Toradol 50 mg IV and potassium. ALLERGIES: IODINATED CONTRAST MEDIA. REVIEW OF SYSTEMS: A 10-point review of system was performed as mentioned above in history of present illness. PHYSICAL EXAMINATION: GENERAL: Well-developed, well-nourished -Tongan male, not in acute distress. He weighs 95.7 kilos. VITAL SIGNS: Blood pressure 139/75, respiratory rate 12, pulse is 75, oxygen saturation 98% on room air, temperature 98.9. HEENT: Normocephalic, atraumatic, otherwise unremarkable. NECK: Supple. Negative for carotid bruit, lymphadenopathy or thyromegaly. LUNGS: Clear to A and P. CARDIOVASCULAR: Regular rate and rhythm, normal S1, S2. There is no S3, S4 or murmur. ABDOMEN: Soft. Bowel sounds positive. EXTREMITIES: Negative for cyanosis, clubbing, pitting edema. NEUROLOGICAL EXAM: Mental Status: The patient is alert and oriented x 3. Speech is fluent. There is no language dysfunction. Memory, judgment, and abstracting thinking are normal. The patient denies hallucination or delusion. CRANIAL NERVES: Visual novoa are full. The pupils are reactive to light and accommodation. The extraocular movements are intact. There is no nystagmus. There is no facial motor or sensory deficit. Hearing is intact bilaterally. The palate is elevated symmetrically. Sternocleidomastoid muscles are powerful bilaterally. The patient shrugs his shoulders symmetrically, and protrudes his tongue in the midline without fasciculation or atrophy. MOTOR: No focal muscle bulk was seen. The tone is normal. The strength is 5/5 throughout. SENSORY EXAMINATION: Revealed normal pinprick, light touch, vibratory and position senses. DEEP TENDON REFLEXES: Symmetric and hypoactive with absent Achilles responses. GAIT: Not tested. LABORATORY DATA: CBC revealed white blood cells of 5700, hemoglobin 13.5, hematocrit 41.8, platelet count of 220,000. Chemistry revealed sodium of 140, potassium 3.3, chloride 103, CO2 of 22, BUN 24, creatinine 1.6, glucose is 98, calcium 8.8. Liver enzymes are not elevated. CK and troponin level is normal. Urinalysis, no evidence of urinary tract infections. DIAGNOSTIC DATA: Head CT scan as mentioned above in history of present illness, but chest x-ray revealed no acute cardiopulmonary process. IMPRESSION: 1. New onset of seizure described as generalized tonic-clonic seizure of unknown etiology. 2. History of a cranial arteriovenous malformations, required craniotomy and preceded by seizure 30 years ago. 3. Chronic low back pain radiating to the hips and lower extremities, rule out lumbosacral pathology. 4. Hypokalemia. 5. Chronic tremor of the upper extremities, aggravated by anxiety. RECOMMENDATIONS: 1. The patient was loaded with Keppra in the Emergency Room. He will be given maintenance dose of Keppra 500 mg at bedtime and from tomorrow he will be on Keppra 500 mg twice daily. 2. We will correct hypokalemia and treat the underlying lower back pain. The patient may receive Ativan for constant tremor. The patient will be scheduled for EEG on an outpatient on 03/17/2019. M Moses BOWEN MD DR: TOMAS/deacon JOB#: [id number] / [id number]
[2019-03-13] MEDS: PIPERACILLIN/TAZOBACTAM 3.375 GM in IV NORMAL SALINE 50ML 50 ML IV SCH ×4 (02:04→20:18)
[2019-03-13 03:08] VITALS: BP 143/71
--- NOTE | 2019-03-13 03:34 | RAD ---
DOPPLER CAROTID BILAT History: Change in mental status Technique: Duplex sonography of the cervical portion of both carotid arteries was performed. Real-time grayscale, color flow Doppler, and Doppler spectral waveform analysis is performed. PQRS Compliance Statement - Stenosis calculations for CT, MR and conventional angiography are based upon measurement of the distal ICA diameter in accordance with the NASCET methodology. Stenosis calculations for carotid ultrasound studies are derived from validated velocity criteria which are known to correlate with the NASCET methodology. Findings: Right side: Peak systolic flow velocity of the CCA is 131 cm/sec. Peak systolic flow velocity of the ICA is 89 cm/sec. The ICA/CCA ratio is 0.8. Peak end diastolic flow velocity of the ICA is 50 cm/sec. The peak systolic velocity of the ECA is 117 cm/sec. No significant plaque formation is identified. Left side: Peak systolic flow velocity of the CCA is 125 cm/sec. Peak systolic flow velocity of the ICA is 95 cm/sec. The ICA/CCA ratio is 0.8. Peak end diastolic flow velocity of the ICA is 41 cm/sec. Peak systolic flow velocity of the ECA is 129 cm/sec. No significant plaque formation is identified. Vertebral arteries: Bilateral vertebral arteries demonstrate antegrade flow. IMPRESSION: 1. No hemodynamically significant internal carotid artery stenosis is identified. Electronically signed by: Kelby Aparicio DO (03/13/2019 3:31 AM) [facility]
[2019-03-13] MEDS: IV NORMAL SALINE 1,000ML 1,000 ML IV SCH ×2 (04:18→06:35)
[2019-03-13 06:04] VITALS: BP 144/73
[2019-03-13 06:26] LABS: BASO # 0.1 x10^3/uL (0.0-0.2); BASO % 1 % (0-3); EOS % 0 % (0-3); HEMATOCRIT 33.4 % (39.0-53.0); HEMOGLOBIN 10.9 g/dL (13.0-17.5); LYMPH % 16 % (24-48); MEAN CORPUSCULAR HEMOGLOBIN 25 pg (25-35); MEAN CORPUSCULAR HGB CONC 33 g/dL (31-37); MEAN CORPUSCULAR VOLUME 78 fL (79-100); MONO # 0.4 x10^3/uL (0.0-1.1); MONO % 7 % (0-9); NEUT % 76 % (31-73); PLATELET COUNT 183 x10^3/uL (140-400); RED CELL DISTRIBUTION WIDTH 14.7 % (11.5-14.5); WHITE BLOOD COUNT 6.5 x10^3/uL (4.0-11.0)
[2019-03-13 06:41] LABS: CALCIUM 7.8 mg/dL (8.5-10.1); CREATININE 1.3 mg/dL (0.7-1.3); POTASSIUM 3.7 mmol/L (3.5-5.1)
[2019-03-13] MEDS: levETIRAcetam 500 MG TABLET PO SCH ×2 (08:34→20:39)
[2019-03-13] MEDS: LACTOBACILLUS RHAMNOSUS GG 1 CAPSULE. PO SCH ×2 (08:34→20:39)
[2019-03-13] MEDS: ENOXAPARIN ** NOTE DOSE ** SYRINGE SQ SCH ×2 (08:35→20:39)
[2019-03-13 10:30] LABS: BGAS PH 7.39 (7.35-7.46)
[2019-03-13 11:35] VITALS: BP 118/81
[2019-03-13] MEDS ORDERED: BISACODYL 10 MG SUPP.RECT PR ONE (12:30)
--- NOTE | 2019-03-13 14:07 | RAD ---
Ventilation perfusion exam History: Elevated d-dimer Comparison: June 12, 2018 chest radiograph Findings: Ventilation perfusion examination was performed. Ventilation images were acquired after the patient inhaled 10 mCi of technetium xenon-133 gas. Perfusion images were acquired after the patient was injected with 5 mCi of technetium 99m MAA. No defined mismatched perfusion defect is identified. Impression: 1. There is low probability for pulmonary embolic disease. Electronically signed by: Leif Diaz MD (03/13/2019 2:05 PM) [id number]
[2019-03-13 17:12] VITALS: BP 127/71
[2019-03-13] MEDS: VANCOMYCIN 1.5 GM in IV NORMAL SALINE 500ML 500 ML IV SCH (17:46)
--- NOTE | 2019-03-13 18:29 | RAD ---
Examination: Lower Extremity Venous Doppler Ultrasound History: Bilateral lower extremity pain, elevated d-dimer Comparison: None Procedure: Fischer scale, color flow 2D and spectal waveform analysis images are obtained with and without compression in the area of the common femoral vein, superficial femoral vein - femoral vein junction, main femoral vein (superficial femoral vein) and popliteal vein. Veins of the proximal calf are also imaged. Findings: There is normal duplex flow, color flow and compressibility of all visualized vein segments. No evidence of deep venous thrombus is present. Impression: No evidence of DVT in the visualized bilateral lower extremity venous system. Electronically signed by: Vic Morse MD (03/13/2019 6:26 PM) [facility]
--- NOTE | 2019-03-13 19:14 | PN ---
DATE: 03/13/2019 SUBJECTIVE: The patient came in with seizure activity, fever and chills. Still running low-grade temperature, however, the patient's seizures seemed to have subsided. He is doing much better. He is not near his tremulous as he was yesterday. Blood pressure 118/81, respiratory rate 12, pulse 64, temperature anywhere from 101.6 down to 99. The patient's labs look basically stable except for his hemoglobin dropping approximately 3 grams. Hemoccult on stools are pending. The patient's D-dimer and V/Q scan is to be performed to rule out any signs of a clot. He is on Lovenox anyway, but will verify that and venous Dopplers bilaterally. OBJECTIVE LUNGS: Diminished, but clear. CARDIOVASCULAR: Stable. ABDOMEN: Soft, nontender. EXTREMITIES: The patient's legs feeling much better. They were very weak and tremulous yesterday, but doing much better today. IMPRESSION: Post-seizure activity, generalized weakness, sepsis. PLAN: The patient continue on IV antibiotic therapy for now and wait for further culture reports. LESTER JOHNSTON MD DR: VIKA/deacon JOB#: [id number] / [id number]
[2019-03-13 19:30] VITALS: BP 128/72
[2019-03-13 23:40] VITALS: BP 111/94
--- NOTE | 2019-03-13 23:45 | PN ---
DATE: 03/13/2019 SUBJECTIVE: The patient is doing much better today. No tremors are noted and he is making excellent progress, although he is still very weak in his legs. He is still running a temperature this evening and we will continue on IV antibiotic therapy. IMPRESSION: Grand mal seizures as well as generalized weakness of the lower extremities. LESTER JOHNSTON MD DR: VIKA/deacon JOB#: [id number] / [id number]
[2019-03-13] MEDS: ONDANSETRON PF 4 MG/2 ML VIAL. IVP PRN (23:51)
[2019-03-14] MEDS: oxyCODONE/APAP 5/325 1 TAB TABLET PO PRN ×2 (01:02→06:40)
[2019-03-14] MEDS: PIPERACILLIN/TAZOBACTAM 3.375 GM in IV NORMAL SALINE 50ML 50 ML IV SCH ×4 (01:51→21:25)
[2019-03-14 06:15] VITALS: BP 96/80
[2019-03-14 06:45] LABS: BASO # 0.1 x10^3/uL (0.0-0.2); BASO % 1 % (0-3); EOS # 0.1 x10^3/uL (0.0-0.7); EOS % 2 % (0-3); HEMATOCRIT 34.8 % (39.0-53.0); HEMOGLOBIN 11.6 g/dL (13.0-17.5); LYMPH # 1.2 x10^3/uL (1.0-4.8); LYMPH % 21 % (24-48); MEAN CORPUSCULAR HEMOGLOBIN 26 pg (25-35); MEAN CORPUSCULAR HGB CONC 33 g/dL (31-37); MEAN CORPUSCULAR VOLUME 77 fL (79-100); MONO # 0.6 x10^3/uL (0.0-1.1); MONO % 11 % (0-9); NEUT # 3.7 x10^3uL (1.8-7.7); NEUT % 65 % (31-73); PLATELET COUNT 181 x10^3/uL (140-400); RED BLOOD COUNT 4.52 x10^6/uL (4.30-5.70); RED CELL DISTRIBUTION WIDTH 14.3 % (11.5-14.5); WHITE BLOOD COUNT 5.7 x10^3/uL (4.0-11.0)
[2019-03-14 06:55] LABS: CALCIUM 8.1 mg/dL (8.5-10.1); CREATININE 1.4 mg/dL (0.7-1.3); GFR 60.6; POTASSIUM 3.8 mmol/L (3.5-5.1)
[2019-03-14] MEDS: levETIRAcetam 500 MG TABLET PO SCH ×2 (08:08→20:20)
[2019-03-14] MEDS: LACTOBACILLUS RHAMNOSUS GG 1 CAPSULE. PO SCH ×2 (08:08→20:20)
[2019-03-14] MEDS: ENOXAPARIN ** NOTE DOSE ** SYRINGE SQ SCH (08:09)
--- NOTE | 2019-03-14 09:54 | PN ---
DATE: SUBJECTIVE: The patient continues to have back pain and pain of the legs along with weakness. He continues to have mild tremor of the left upper extremity. OBJECTIVE: GENERAL: Well-developed, well-nourished male, not in acute distress. VITAL SIGNS: Blood pressure 96/80, respiratory rate 14, pulse is 60, temperature 100.6, oxygen saturation 98% on room air. HEENT: Normocephalic, atraumatic, otherwise unremarkable. NECK: Supple. Negative for carotid bruit, lymphadenopathy or thyromegaly. LUNGS: Clear to A and P. CARDIOVASCULAR: Regular rate and rhythm, normal S1, S2. ABDOMEN: Soft. Bowel sounds positive. EXTREMITIES: Negative for cyanosis, clubbing or pitting edema. NEUROLOGICAL EXAMINATION: Mental status: The patient is alert and oriented x 3. The speech is fluent. There is no language dysfunction. Memory, judgment, and abstracting thinking are fair. The patient denies hallucination or delusion. Cranial nerves are intact. Motor examination revealed no focal muscle bulk was seen. The tone is normal. The strength is 4/5 in the lower extremities and 5/5 in the upper extremities. Sensory examination revealed normal pinprick, light touch, vibratory and position senses. Deep tendon reflexes were symmetric and hypoactive with absent Achilles responses. Gait: The stance is steady. Motor examination revealed patient has postural and mild kinetic tremors of the left upper extremity. LABORATORY DATA: CBC revealed white blood cells of 5700, hemoglobin 11.6, hematocrit 34.8, platelet count 181,000. Chemistry revealed sodium of 158, potassium 3.8, chloride 103, CO2 of 25, BUN 19, creatinine 1.4, glucose 96, calcium 8.1. DIAGNOSTIC DATA: Because of elevated D-dimer, venous Doppler study of the lower extremities revealed no evidence of DVTs. Abdomen and pelvis CT scan revealed evidence of liver and renal cysts, otherwise unremarkable. Carotid Doppler study revealed no evidence of significant carotid stenosis. V/Q revealed low probability for pulmonary embolic disease. IMPRESSION: 1. Generalized weakness and malaise, probably underlying viral infections. 2. New onset of generalized tonic-clonic seizure, etiology uncertain, stable on Keppra. 3. Renal insufficiency with elevated creatinine. 4. Chronic tremor of the left upper extremity. 5. Chronic lower back pain. RECOMMENDATIONS: 1. Continue with current medical management initiated by Dr. Szymanski. 2. We will add primidone 50 mg at bedtime for the tremor. 3. We will arrange for EEG on an outpatient basis. M Moses BOWEN MD DR: TOMAS/deacon JOB#: [id number] / [id number]
[2019-03-14 11:04] VITALS: BP 126/78
--- NOTE | 2019-03-14 12:18 | PN ---
DATE: 03/13/2019 SUBJECTIVE: The patient denies any new medical or neurological complaints. His back pain has been better and his tremor has improved. He has not had any recurrent seizures since admission. He has been on Keppra 500 mg twice daily. The patient tolerated his medicine well. OBJECTIVE: GENERAL: Well-developed, well-nourished -[place] male, not in acute distress. VITAL SIGNS: Blood pressure 118/81, respiratory rate 12, pulse is 64 and regular, oxygen saturation 95%, and temperature is 99. HEENT: Normocephalic, atraumatic, otherwise unremarkable. NECK: Supple. Negative for carotid bruit, lymphadenopathy or thyromegaly. LUNGS: Clear to A and P. CARDIOVASCULAR: Regular rate and rhythm, normal S1, S2. There is no S3, S4 or murmur. ABDOMEN: Soft. Bowel sounds positive. EXTREMITIES: Negative for cyanosis, clubbing or edema. NEUROLOGICAL EXAM: Mental Status: The patient is alert and oriented x3. The speech is fluent. There is no language dysfunction, otherwise unremarkable. Cranial nerves are intact. No focal motor or sensory deficit. The strength is 5/5 throughout. The patient had mild postural and kinetic tremor confined to the left hand. Sensory examination revealed normal pinprick, light touch, vibratory and position senses. Deep tendon reflexes were symmetric and hypoactive with absent Achilles responses. Gait not tested. LABORATORY DATA: CBC revealed white blood cells of 6.5 thousand, hemoglobin 10.9, hematocrit 33.4, platelet count 183,000. Chemistry revealed sodium of 138, potassium 3.7, chloride 106, CO2 of 22, BUN 22, creatinine 1.3 and calcium 7.8, glucose 111. Influenza A and B is negative. IMPRESSION: 1. New-onset of seizure of unknown etiology. 2. Chronic anemia type. 3. Chronic low back pain -- improved. 4. 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 RECOMMENDATIONS: 1. Continue with current medical care including Keppra 500 mg twice daily. 2. We will arrange for EEG on an outpatient basis on 03/17/2019. M Moses BOWEN MD DR: TOMAS/deacon JOB#: [id number] / [id number]
[2019-03-14] MEDS ORDERED: rOPINIRole 0.5 MG TABLET. PO SCH (14:00)
[2019-03-14] MEDS: ONDANSETRON PF 4 MG/2 ML VIAL. IVP PRN (15:08)
[2019-03-14] MEDS ORDERED: ACETAMINOPHEN 500 MG TABLET PO PRN (15:15)
[2019-03-14] MEDS: ACETAMINOPHEN 325 MG TABLET PO PRN (15:19)
--- NOTE | 2019-03-14 16:59 | NUR ---
NURSING NOTE: PATIENT'S CELL PHONE NOTED TO BE MISSING APPROXIMATELY AT 1530. PATIENTS ROOM SEARCHED, GUEST BATHROOM BETWEEN ICU AND LOBBY SEARCHED, PT ROOM ON 1 SOUTH ALSO SEARCHED. PHONE NOT FOUND AT THIS TIME. SECURITY AND EVS MADE AWARE OF MISSING PHONE. PHONE IS NOTED TO BE A BLACK [employer] WITH BLACK CASE ON IT.
[2019-03-14 17:42] LABS: VANC TR 4.8 mcg/mL (10.0-20.0)
--- NOTE | 2019-03-14 18:16 | EKG ---
[address] [address] Test Date: 2019-03-14 Test Time: 19:10:39 Pat Name: JEANNETTE VELA Department: Room: ICU02 1 Gender: M House Painter: : 1950 Requested By: LESTER JOHNSTON Order Number: [id number] Reading MD: Measurements Intervals [place] Rate: 63 P: 54 IA: 144 QRS: 54 QRSD: 82 T: 60 QT: 430 QTc: 443 Interpretive Statements SINUS RHYTHM LEFT ATRIAL ABNORMALITY ABNORMAL ECG RI6.02 Compared to ECG 01/31/2019 17:09:35 Atrial abnormality now present
[2019-03-14] MEDS: VANCOMYCIN PER PHARMACY MC PRN (18:37)
--- NOTE | 2019-03-14 18:38 | NUR ---
Pharmacy Vancomycin Dosing Note S:Consulted to monitor and dose vancomycin started 03/12/19. O:JEANNETTE VELA is a 68 year old M with Empiric, . Height: 6 feet, 3 inches Weight: 97.755600 kg [place] Body Weight: 84.50 Adjusted Body Weight: 89.78 Dosing Weight: Actual Other Antibiotics: ZOSYN 3.375GM IV Q6HR LABS: Last BUN: 19 Last Creatinine: 1.4 Creatinine Clearance: 62.36 Last WBC: 5.7 Drug Levels: Last level: 4.8 on 03/14/19 at 1730 Last dose given at Vancomycin Dosing: Loading Dose: 2000 mg x1 Dosing Weight: Actual Target Trough: 10-20 A: Based on: Trough and improved renal function P: 1. Begin Vancomycin 1500 mg IV q12h 2. Follow up Trough level on 03/16/19 at 0530 3. Pharmacy will continue to monitor, follow and adjust therapy as needed. NOEL CABRERA, 03/14/19 [id number]
[2019-03-14] MEDS: VANCOMYCIN 1.5 GM in IV NORMAL SALINE 500ML 500 ML IV SCH (19:05)
[2019-03-14] MEDS: ASPIRIN 81 MG TAB.CHEW PO SCH (19:05)
[2019-03-14 19:33] VITALS: BP 159/84
[2019-03-14 20:00] VITALS: BP 156/95
[2019-03-14] MEDS ORDERED: METOPROLOL TART IMMED RELEASE 25 MG TABLET PO ONE (20:15)
[2019-03-14] MEDS: PRIMIDONE 50 MG TABLET PO SCH (20:20)
[2019-03-14 20:50] VITALS: BP 145/91
--- NOTE | 2019-03-14 21:43 | RAD ---
EXAM: CHEST 1 VIEW History: Fever COMPARISON: 03/12/2019 TECHNIQUE: Single portable radiograph of the chest FINDINGS: The cardiac silhouette is unremarkable. The lungs are clear bilaterally. The costophrenic sulci are clear and well demarcated. IMPRESSION: No radiographic evidence of an acute cardiopulmonary process. Electronically signed by: Vic Morse MD (03/14/2019 9:40 PM) [facility]
[2019-03-14 22:40] VITALS: BP 144/80
[2019-03-15] VITALS (7 sets, daily range): BP systolic 110–154; BP diastolic 70–87
--- NOTE | 2019-03-15 00:12 | PN ---
DATE: SUBJECTIVE: A 68-year-old male in with seizures, possible SIRS. The patient is still running low-grade temperature and still needs to be continued to be monitored carefully. He has generalized weakness, possible sepsis. OBJECTIVE: VITAL SIGNS: Temperature still running up to 100.6, blood pressure 96/80, respiratory rate 14, pulse 60, febrile. GENERAL: The patient continues to have weakness in his leg, twitching. He complains of restless leg. LUNGS: Actually clear to auscultation. CARDIOVASCULAR: Regular sinus rhythm, S1, S2. ABDOMEN: Soft. EXTREMITIES: No clubbing, cyanosis, nor edema. The patient is still very weak, difficulty with walking. We will go ahead and continue to monitor him. Continue on IV antibiotic therapy and continue to look at possible skilled unit for him as he regains his strength. We will start him on some Robinul for his situation with his restless legs. IMPRESSION: Grand mal seizures, sepsis, anemia, iron deficiency, fever of unknown origin presently, elevated D-dimer, negative V/Q scan, hematuria. Continue on antibiotics for now. Continue with PT, OT, make sure he gets some of his strength. Consider for a skilled unit and make further evaluation at that facility. LESTER JOHNSTON MD DR: VIKA/deacon JOB#: [id number] / [id number]
[2019-03-15] MEDS: PIPERACILLIN/TAZOBACTAM 3.375 GM in IV NORMAL SALINE 50ML 50 ML IV SCH ×2 (01:51→08:17)
[2019-03-15] MEDS ORDERED: VANCOMYCIN 1.5 GM in IV NORMAL SALINE 500ML 500 ML IV SCH (06:00)
[2019-03-15 06:54] LABS: BASO # 0.1 x10^3/uL (0.0-0.2); BASO % 1 % (0-3); EOS # 0.2 x10^3/uL (0.0-0.7); EOS % 3 % (0-3); HEMATOCRIT 35.3 % (39.0-53.0); HEMOGLOBIN 11.7 g/dL (13.0-17.5); LYMPH # 1.1 x10^3/uL (1.0-4.8); LYMPH % 20 % (24-48); MEAN CORPUSCULAR HEMOGLOBIN 26 pg (25-35); MEAN CORPUSCULAR HGB CONC 33 g/dL (31-37); MEAN CORPUSCULAR VOLUME 77 fL (79-100); MONO # 0.9 x10^3/uL (0.0-1.1); MONO % 17 % (0-9); NEUT # 3.2 x10^3uL (1.8-7.7); NEUT % 59 % (31-73); PLATELET COUNT 167 x10^3/uL (140-400); RED BLOOD COUNT 4.58 x10^6/uL (4.30-5.70); RED CELL DISTRIBUTION WIDTH 14.1 % (11.5-14.5); WHITE BLOOD COUNT 5.5 x10^3/uL (4.0-11.0)
[2019-03-15 07:02] LABS: ALBUMIN 2.9 g/dL (3.4-5.0); CALCIUM 7.9 mg/dL (8.5-10.1); CREATININE 1.3 mg/dL (0.7-1.3); TOTAL BILIRUBIN 0.6 mg/dL (0.2-1.0); TOTAL PROTEIN 5.8 g/dL (6.4-8.2)
[2019-03-15] MEDS: LACTOBACILLUS RHAMNOSUS GG 1 CAPSULE. PO SCH ×2 (08:15→20:17)
[2019-03-15] MEDS: ACETAMINOPHEN 325 MG TABLET PO PRN (08:16)
[2019-03-15] MEDS: ENOXAPARIN 40 MG/0.4 ML SYRINGE. SQ SCH (08:16)
[2019-03-15] MEDS: levETIRAcetam 500 MG TABLET PO SCH ×2 (08:16→20:17)
[2019-03-15] MEDS: ASPIRIN 81 MG TAB.CHEW PO SCH (08:16)
[2019-03-15] MEDS: ONDANSETRON PF 4 MG/2 ML VIAL. IVP PRN (08:21)
--- NOTE | 2019-03-15 08:21 | NUR ---
Dr Szymanski notified of [facility] not accepting patient, orders to consult cardiology and place stat CT Chest. Patient continues to have slight elevated temp. of 100.6. Complains of chills and nausea, PRN tylenol given this AM.
--- NOTE | 2019-03-15 09:35 | RAD ---
STUDY: CT chest without contrast INDICATION: Concern for infection. COMPARISON: CT chest 02/08/2018 TECHNIQUE: Helical CT imaging of the chest performed without the use of intravenous contrast. Sagittal and coronal reformats were obtained. One or more of the following individualized dose reduction techniques were utilized for this examination: 1. Automated exposure control 2. Adjustment of the mA and/or kV according to patient size 3. Use of iterative reconstruction technique. FINDINGS: Vasculature: Unchanged caliber of the thoracic and upper abdominal aorta. No main pulmonary artery dilatation. The heart is normal in size. Mediastinum/radha: No newly seen mediastinal or hilar adenopathy. Lungs: At the posterior aspect of the right lower lobe, pulmonary nodule approaching the pleura measuring up to 1 cm with faint surrounding groundglass attenuation and localized pleural prominence. No similar peripheral nodularity elsewhere throughout either lung. Minimal basilar atelectasis. Scattered punctate granulomas. Neck/axilla/chest wall: Unchanged size of small thyroid nodules within the posterior aspect of both thyroid lobes, the larger on the left measuring up to 1.8 cm in AP dimension, image 8 series 2. No axillary adenopathy. Bones: No newly seen osseous abnormality. Upper abdomen: Numerous low-attenuation foci scattered throughout the partially visualized liver are unchanged in size and number from the prior. The spleen is again noted to be at the upper limits of normal for size. Partially visualized low-attenuation focus within the left kidney was present on the comparison. IMPRESSION: 1. New from the 02/08/2018 study is a 1 cm right lower lobe solid nodule with mild surrounding groundglass haziness approaching the posterior pleura. Though potentially infectious or inflammatory in origin, especially given provided history, follow-up imaging in 3 months is recommended to confirm stability/resolution. No newly seen abnormality elsewhere throughout either lung. 2. Numerous low-attenuation foci scattered throughout the liver as well as partially visualized low-attenuation focus within the left kidney are no different from the prior and most suggestive of cysts given stability over time. The spleen is again noted to be at the upper limits of normal for size. Electronically signed by: ANN SARABIA MD (03/15/2019 9:32 AM) [facility]
--- NOTE | 2019-03-15 10:53 | PN ---
DATE: 03/14/2019 SUBJECTIVE: The patient stated he is back. The patient denies any new neurological complaints. He continues to complain of discomfort feeling in the lower abdomen. He denies chest pain, shortness of breath or palpitation, headaches, dysarthria, dysphagia, but he continues to complain of generalized weakness. OBJECTIVE: GENERAL: Well-developed, well-nourished -Filipino male, not in acute distress. VITAL SIGNS: Blood pressure is 96/80, respiratory rate 14, pulse is 60, temperature 100.6, oxygen saturation 98% on room air. HEENT: Normocephalic, atraumatic, otherwise unremarkable. NECK: Supple. Negative for carotid bruit, lymphadenopathy or thyromegaly. LUNGS: Clear to A and P. CARDIOVASCULAR: Regular rate and rhythm, normal S1, S2. ABDOMEN: Soft. Bowel sounds positive. EXTREMITIES: Negative for cyanosis, clubbing, pitting edema. NEUROLOGICAL EXAM: Mental Status: The patient is alert and oriented x 2. Speech is fluent. There is no language dysfunction. Memory, judgment, and abstract thinking are fair. The patient denies hallucination or delusion. Cranial nerves are intact. No focal motor or sensory deficit. The strength is 4/5 throughout. Sensory examination revealed normal pinprick, light touch, vibratory and position senses. Deep tendon reflexes were symmetric and hypoactive with absent Achilles responses. Gait: The stance is steady. The patient uses a walker for ambulation with physical therapy. The patient has mild postural and kinetic tremors of both hands. IMPRESSION: 1. New onset of seizure. No recurrence since admission, has been on Keppra. 2. Fever of unknown origin. The patient has been on antibiotic for possible systemic infections. 3. Multiple medical problems include generalized weakness. 4. Chronic low back pain, tremor of the upper extremities and anxiety. RECOMMENDATIONS: 1. Continue with anticonvulsant, Keppra. 2. We will start the patient on primidone at 50 mg at bedtime. 3. Physical therapy evaluation. 4. Continue with current care. M Moses BOWEN MD DR: TOMAS/deacon JOB#: [id number] / [id number]
--- NOTE | 2019-03-15 11:20 | PN ---
DATE: SUBJECTIVE: The patient denies any new neurological complaints. He complains of a discomfort feeling in the lower abdomen. His appetite has been erratic and according to the patient, he has not eaten food for five days. The patient stated his back and hip pain has improved. OBJECTIVE: GENERAL: Well-developed and well-nourished male, not in acute distress. VITAL SIGNS: Blood pressure 156/95, respiratory rate 18, pulse is 67, temperature is 100.9, and oxygen saturation is 98% on the room air. HEENT: Normocephalic and atraumatic, otherwise, unremarkable. NECK: Supple. Negative for carotid bruit, lymphadenopathy, or thyromegaly. LUNGS: Clear to A and P. CARDIOVASCULAR: Regular rate and rhythm and normal S1 and S2. ABDOMEN: Soft. Bowel sounds positive. EXTREMITIES: Negative for a cyanosis, clubbing, or edema. NEUROLOGICAL: Mental Status: The patient is alert and oriented x 3. Speech is fluent. There are no language dysfunctions. Memory, judgment, and abstracting thinkings are fair. The patient denies hallucination or delusion. The cranial nerves are intact. No focal motor or sensory deficit. The strength was 4/5 throughout. The sensory examination revealed normal pinprick, light touch, and vibratory and positional senses. Deep tendon reflexes were symmetric and hyperactive with absent Achilles responses. Gait: The stance is steady. The patient uses a walker for ambulation. LABORATORY DATA: CBC revealed white blood cells 5.5 thousand, hemoglobin 11.7, hematocrit 35.3, and platelet count 167,000. Chemistry revealed sodium of 137, potassium 4, chloride 102, CO2 of 27, BUN 18, creatinine 1.3, and glucose 108. Troponin level is 0.04. IMPRESSION: 1. New onset of seizure, etiology uncertain. However, there is no evidence of a central nervous system pathology on a head CT scan. 2. Continues having a fever of unknown origin with normal white blood cells. 3. Mild postural and kinetic tremors, on primidone. 4. Elevated D-dimer with negative V/Q, anemia of chronic type. RECOMMENDATIONS: Continue with current care and physical therapy as tolerated. M Moses BOWEN MD DR: TOMAS/deacon JOB#: [id number] / [id number]
[2019-03-15] MEDS: PRIMIDONE 50 MG TABLET PO SCH (20:17)
[2019-03-15] MEDS: oxyCODONE/APAP 5/325 1 TAB TABLET PO PRN (20:18)
--- NOTE | 2019-03-16 02:29 | PN ---
DATE: SUBJECTIVE: The patient in with sepsis, seizure activity, elevated troponin levels. The patient is resting fairly comfortably, making some progress overall. Still running low-grade temperature of 100.5. Attempted to transfer him to , they refused to accept him or basically said he was probably with a viral infection and that he was to stay here unless he further deteriorated. He does seem to be improved. OBJECTIVE: VITAL SIGNS: Blood pressure is 115/70, respiratory rate 12, pulse of 60, temperature 100.5. LABORATORY DATA: Remain basically stable. White count of 5.5, hemoglobin 11.7 and 35, still elevated monocytes of 17, but the lymphocytes are down to 20. The patient otherwise continues to be monitored carefully and we will make further evaluation on him. Otherwise, he is alert and oriented, seems to be stronger. He is mobilizing overall. The patient will continue to be monitored carefully and we will discontinue the IV antibiotics since he is on a possible viral infection, but we will continue to monitor him accordingly and make further evaluation on him per those results. IMPRESSION: Sepsis, fever of unknown origin, elevated creatinine, grand mal seizure activity, positive D-dimer, anemia, probable iron deficiency. PLAN: Continue to monitor the patient and monitor his temperature. LESTER JOHNSTON MD DR: VIKA/deacon JOB#: [id number] / [id number]
[2019-03-16] MEDS: oxyCODONE/APAP 5/325 1 TAB TABLET PO PRN (05:59)
[2019-03-16 06:05] VITALS: BP 153/83
[2019-03-16] MEDS: LACTOBACILLUS RHAMNOSUS GG 1 CAPSULE. PO SCH (09:13)
[2019-03-16] MEDS: ASPIRIN 81 MG TAB.CHEW PO SCH (09:13)
[2019-03-16] MEDS: ENOXAPARIN 40 MG/0.4 ML SYRINGE. SQ SCH (09:13)
[2019-03-16] MEDS: ACETAMINOPHEN 325 MG TABLET PO PRN (09:13)
[2019-03-16] MEDS: levETIRAcetam 500 MG TABLET PO SCH (09:13)
--- NOTE | 2019-03-16 10:28 | PDOC2 ---
CARDIAC CONSULT DATE OF CONSULT Date Of Consult DATE: 03/16/19 TIME: 10:19 REASON FOR CONSULT Reason for Consult Elevated troponin REFERRING PHYSICIAN Referring Physician Dr. Szymanski SOURCE Source: Chart review, Patient HPI History of Present Illness This is a 68 yo male who presented secondary to generalized weakness, malaise, and body aches. Experienced several days on nausea/vomiting, which is now resolved. The morning of arrival, patient was noted with seizure-like activity by his . EMS was called. While in ED, had seizure episode witness by ED physician, followed by postictal confusion. Troponin was checked and noted to be mildly elevated, which prompted this consult. Has also been febrile during this admission. Denies any chest pain, palpitations, dizziness, diaphoresis, or nausea/vomiting. PAST MEDICAL HISTORY Cardiovascular: hyperipidemia Renal/: Benign prostatic enlarg. PAST SURGICAL HISTORY Past Surgical History: Other (shoulder surgery ) FAMILY HISTORY Family History: Other (no pertinent hx) SOCIAL HISTORY Smoke: No ALCOHOL: none Drugs: None Lives: with Family CURRENT MEDICATIONS Current Medications Current Medications Sodium Chloride 1,000 ml @ 1,000 mls/hr 1X ONCE IV Last administered on 03/12/19at 08:34; Start 03/12/19 at 08:00; Stop 03/12/19 at 08:59; Status DC Ketorolac Tromethamine (Toradol 15mg Vial) 10 mg 1X ONCE IVP Last administered on 03/12/19at 08:35; Start 03/12/19 at 08:15; Stop 03/12/19 at 08:16; Status DC Orphenadrine Citrate (Norflex) 60 mg 1X ONCE IV Last administered on 03/12/19at 08:34; Start 03/12/19 at 08:15; Stop 03/12/19 at 08:16; Status DC Lorazepam (Ativan Inj) 1 mg 1X ONCE IVP Last administered on 03/12/19at 08:59; Start 03/12/19 at 09:00; Stop 03/12/19 at 09:01; Status DC Lorazepam (Ativan Inj) 1 mg 1X ONCE IVP Last administered on 03/12/19at 09:30; Start 03/12/19 at 09:30; Stop 03/12/19 at 09:31; Status DC Sodium Chloride 1,000 ml @ 1,000 mls/hr 1X ONCE IV Last administered on 03/12/19at 09:30; Start 03/12/19 at 09:45; Stop 03/12/19 at 10:44; Status DC Potassium Chloride (Klor-Con) 40 meq 1X ONCE PO Last administered on 03/12/19at 12:49; Start 03/12/19 at 11:00; Stop 03/12/19 at 11:01; Status DC Levetiracetam 1000 mg/Sodium Chloride 100 ml @ 400 mls/hr 1X ONCE IV Last administered on 03/12/19at 11:30; Start 03/12/19 at 11:30; Stop 03/12/19 at 11:44; Status DC Ondansetron HCl (Zofran) 4 mg PRN Q4HRS PRN IV NAUSEA/VOMITING Last administered on 03/12/19at 12:49; Start 03/12/19 at 11:15; Stop 03/13/19 at 11:14; Status DC Sodium Chloride 100 ml @ As Directed STK-MED ONCE .ROUTE ; Start 03/12/19 at 11:27; Stop 03/12/19 at 11:27; Status DC Levetiracetam (Keppra) 500 mg STK-MED ONCE IV ; Start 03/12/19 at 11:27; Stop 03/12/19 at 11:27; Status DC Oxycodone/ Acetaminophen (Percocet 5/325) 1 tab PRN Q6HRS PRN PO PAIN; Start 03/12/19 at 13:15 Oxycodone/ Acetaminophen (Percocet 5/325) 2 tab PRN Q6HRS PRN PO PAIN Last administered on 03/16/19at 05:59; Start 03/12/19 at 13:15 Levetiracetam (Keppra) 500 mg BID PO Last administered on 03/16/19at 09:13; Start 03/12/19 at 21:00 Lorazepam (Ativan Inj) 1 mg PRN Q6HRS PRN IVP ANXIETY / AGITATION Last administered on 03/12/19at 13:41; Start 03/12/19 at 13:30 Sodium Chloride 1,000 ml @ 150 mls/hr Q6H40M IV Last administered on 03/13/19at 04:18; Start 03/12/19 at 17:15; Stop 03/13/19 at 11:59; Status DC Piperacillin Sod/ Tazobactam Sod (Zosyn Per Pharmacy) 1 each PRN DAILY PRN MC SEE COMMENTS Last administered on 03/12/19at 17:36; Start 03/12/19 at 17:15; Stop 03/15/19 at 09:50; Status DC Vancomycin HCl (Vanco Per Pharmacy) 1 each PRN DAILY PRN MC SEE COMMENTS Last administered on 03/14/19at 18:37; Start 03/12/19 at 17:15; Stop 03/15/19 at 09:50; Status DC Enoxaparin Sodium (Lovenox 80mg Syringe) 80 mg Q12HR SQ Last administered on 03/14/19at 08:09; Start 03/12/19 at 21:00; Stop 03/14/19 at 10:30; Status DC Vancomycin HCl 2 gm/Sodium Chloride 500 ml @ 250 mls/hr 1X ONCE IV Last administered on 03/12/19at 18:42; Start 03/12/19 at 18:00; Stop 03/12/19 at 19:59; Status DC Vancomycin HCl 1.5 gm/Sodium Chloride 500 ml @ 250 mls/hr Q24H IV ; Start 03/12/19 at 17:30; Status Cancel Vancomycin HCl (Vancomycin Trough Level) 1 each 1X ONCE MC Last administered on 03/14/19at 17:30; Start 03/14/19 at 17:30; Stop 03/15/19 at 09:50; Status DC Piperacillin Sod/ Tazobactam Sod 3.375 gm/Sodium Chloride 50 ml @ 100 mls/hr Q6H IV Last administered on 03/15/19at 08:17; Start 03/12/19 at 20:00; Stop 03/15/19 at 09:50; Status DC Vancomycin HCl 1.5 gm/Sodium Chloride 500 ml @ 250 mls/hr Q24H IV Last administered on 03/14/19at 19:05; Start 03/13/19 at 18:00; Stop 03/14/19 at 21:00; Status DC Lactobacillus Rhamnosus (Culturelle) 1 cap BID PO Last administered on 03/16/19at 09:13; Start 03/13/19 at 09:00 Bisacodyl (Dulcolax Supp) 10 mg 1X ONCE MN ; Start 03/13/19 at 12:30; Stop 03/13/19 at 12:31; Status DC Ondansetron HCl (Zofran) 4 mg PRN Q6HRS PRN IVP NAUSEA/VOMITING Last administered on 03/15/19at 08:21; Start 03/14/19 at 00:00 Ropinirole HCl (Requip) 0.5 mg TID PO ; Start 03/14/19 at 14:00; Stop 03/14/19 at 10:30; Status DC Enoxaparin Sodium (Lovenox 40mg Syringe) 40 mg DAILY SQ Last administered on 03/16/19at 09:13; Start 03/15/19 at 09:00 Primidone (Mysoline) 50 mg HS PO Last administered on 03/15/19at 20:17; Start 03/14/19 at 21:00 Acetaminophen (Tylenol) 500 mg PRN Q6HRS PRN PO PAIN / TEMP; Start 03/14/19 at 15:15; Stop 03/14/19 at 15:16; Status DC Acetaminophen (Tylenol) 650 mg PRN Q6HRS PRN PO FEVER Last administered on 03/16/19at 09:13; Start 03/14/19 at 15:15 Aspirin (Children'S Aspirin) 81 mg DAILYWBKFT PO Last administered on 03/16/19at 09:13; Start 03/14/19 at 18:30 Vancomycin HCl 1.5 gm/Sodium Chloride 500 ml @ 250 mls/hr Q12H IV Last administered on 03/15/19at 06:03; Start 03/15/19 at 06:00; Stop 03/15/19 at 09:50; Status DC Vancomycin HCl (Vancomycin Trough Level) 1 each 1X ONCE MC ; Start 03/16/19 at 05:30; Stop 03/15/19 at 09:50; Status DC Metoprolol Tartrate (Lopressor) 12.5 mg 1X ONCE PO Last administered on 03/14/19at 20:20; Start 03/14/19 at 20:15; Stop 03/14/19 at 20:16; Status DC Active Scripts Active Reported No Known Medications Prior To Admisstion (Info) Each 1 Each MC 1X ALLERGIES Allergies: Coded Allergies: Iodinated Contrast Media (Verified Allergy, Intermediate, Vomiting, 02/01/19) RX WAS 30 YEARS AGO ROS Review of Systems 14 point ROS conducted with pertinent positives noted above in HPI. PHYSICAL EXAM General: Alert, Oriented X3, Cooperative, No acute distress HEENT: Atraumatic, Mucous membr. moist/pink Lungs: Clear to auscultation, Normal air movement Heart: Regular rate, Normal S1, Normal S2 Abdomen: Soft, No tenderness Extremities: No edema, Normal pulses Skin: No breakdown Neuro: Normal speech, Sensation intact Psych/Mental Status: Mental status NL, Mood NL MUSCULOSKELETAL: Osteoarthritic changes both hands VITALS Vital Signs Vital Signs Date Time Temp Pulse Resp B/P (MAP) Pulse Ox O2 Delivery O2 Flow Rate FiO2 03/16/19 08:00 Room Air 03/16/19 07:15 11 97 03/16/19 06:05 99.9 57 153/83 (106) 03/12/19 11:17 2.0 LABS LABS Laboratory Tests Test 03/14/19 17:20 03/14/19 21:30 03/15/19 01:45 Creatine Kinase 5814 U/L (39-308) Troponin I Quantitative 0.069 ng/mL (0-0.055) 0.059 ng/mL (0-0.055) 0.048 ng/mL (0-0.055) Vancomycin Level Trough 4.8 mcg/mL (10.0-20.0) Vancomycin Last Dose Date 03/13/19 Vancomycin Last Dose Time 1800 White Blood Count 5.5 x10^3/uL (4.0-11.0) Red Blood Count 4.58 x10^6/uL (4.30-5.70) Hemoglobin 11.7 g/dL (13.0-17.5) Hematocrit 35.3 % (39.0-53.0) Mean Corpuscular Volume 77 fL (79-100) Mean Corpuscular Hemoglobin 26 pg (25-35) Mean Corpuscular Hemoglobin Concent 33 g/dL (31-37) Red Cell Distribution Width 14.1 % (11.5-14.5) Platelet Count 167 x10^3/uL (140-400) Neutrophils (%) (Auto) 59 % (31-73) Lymphocytes (%) (Auto) 20 % (24-48) Monocytes (%) (Auto) 17 % (0-9) Eosinophils (%) (Auto) 3 % (0-3) Basophils (%) (Auto) 1 % (0-3) Neutrophils # (Auto) 3.2 x10^3uL (1.8-7.7) Lymphocytes # (Auto) 1.1 x10^3/uL (1.0-4.8) Monocytes # (Auto) 0.9 x10^3/uL (0.0-1.1) Eosinophils # (Auto) 0.2 x10^3/uL (0.0-0.7) Basophils # (Auto) 0.1 x10^3/uL (0.0-0.2) Sodium Level 137 mmol/L (136-145) Potassium Level 4.0 mmol/L (3.5-5.1) Chloride Level 102 mmol/L (98-107) Carbon Dioxide Level 27 mmol/L (21-32) Anion Gap 8 (6-14) Blood Urea Nitrogen 18 mg/dL (8-26) Creatinine 1.3 mg/dL (0.7-1.3) Estimated GFR (Cockcroft-Gault) 66.0 BUN/Creatinine Ratio 14 (6-20) Glucose Level 108 mg/dL (70-99) Calcium Level 7.9 mg/dL (8.5-10.1) Total Bilirubin 0.6 mg/dL (0.2-1.0) Aspartate Amino Transf (AST/SGOT) 46 U/L (15-37) Alanine Aminotransferase (ALT/SGPT) 26 U/L (16-63) Alkaline Phosphatase 46 U/L (46-116) Total Protein 5.8 g/dL (6.4-8.2) Albumin 2.9 g/dL (3.4-5.0) Albumin/Globulin Ratio 1.0 (1.0-1.7) ECHOCARDIOGRAM Echocardiogram <Conclusion> The left ventricular systolic function is normal. The Ejection Fraction is 55-60%. There is normal LV segmental wall motion. Transmitral Doppler flow pattern is Grade I-abnormal relaxation pattern. Doppler and Color Flow revealed mild tricuspid regurgitation. There is no evidence of significant pericardial effusion. DATE: 02/01/19 0925 STRESS TEST Stress Test Conclusion 1. No EKG evidence of stressed induced ischemia. 2. Nuclear imaging shows no reversible ischemia or infarct. 3. Normal left ventricular systolic function with an ejection fraction of greater than 70%. 4. Low risk Lexiscan nuclear stress test. DATE: 02/24/19 1300 ASSESSMENT/PLAN Assessment/Plan 1. Weakness, malaise, body aches, fevers. Most probably viral illness 2. New onset seizures; on Keppra 3. Mild troponin elevation; peak 0.069. Most probably type II, demand ischemia in the setting of seizures. Recent echo with preserved LV systolic function. Stress test last month without ischemia or infarct 4. Hyperlipidemia Recommendations Supportive care Follow neuro recs No further cardiac cardiac workup warranted at this time. Please call with questions. MONY LOBO APRN Mar 16, 2019 10:28
[2019-03-16 11:05] LABS: BASO # 0.1 x10^3/uL (0.0-0.2); BASO % 1 % (0-3); EOS # 0.2 x10^3/uL (0.0-0.7); EOS % 4 % (0-3); HEMATOCRIT 35.6 % (39.0-53.0); HEMOGLOBIN 11.8 g/dL (13.0-17.5); LYMPH % 18 % (24-48); MEAN CORPUSCULAR HEMOGLOBIN 26 pg (25-35); MEAN CORPUSCULAR HGB CONC 33 g/dL (31-37); MEAN CORPUSCULAR VOLUME 77 fL (79-100); MONO # 0.8 x10^3/uL (0.0-1.1); MONO % 16 % (0-9); NEUT # 3.3 x10^3uL (1.8-7.7); NEUT % 61 % (31-73); PLATELET COUNT 179 x10^3/uL (140-400); RED BLOOD COUNT 4.63 x10^6/uL (4.30-5.70); WHITE BLOOD COUNT 5.4 x10^3/uL (4.0-11.0)
[2019-03-16] MEDS ORDERED: LEVE500T56 PO (11:33)
[2019-03-16 11:34] VITALS: BP 125/67
[2019-03-16] MEDS ORDERED: PRIM50TA24 PO (11:35)
--- NOTE | 2019-03-16 11:47 | NUR ---
Dr Szymanski here, plan is to discharge home. Prescriptions called into [facility] pharmacy. IV removed at this time. Patient getting dressed at this time, in room and will be taking patient home.
[2019-03-16 11:48] VITALS: BP 120/63
--- NOTE | 2019-03-16 11:52 | NUR ---
oupatient eeg set up for 03/[address] dorado office.
[2019-03-16] MEDS ORDERED: ACET325T9 PO (12:12)
[2019-03-16] MEDS ORDERED: ASPI-630 PO (12:12)
--- NOTE | 2019-03-16 12:29 | NUR ---
Patient given discharge instructions at this time, patient and family verbalized dc instructions given. Patient ambulated via wheelchair to personal car with .
[2019-03-16 14:07] LABS: ALBUM 3.4 g/dL (2.9-4.4); ALPHA 1 0.2 g/dL (0.0-0.4); ALPHA 2 0.7 g/dL (0.4-1.0); BETA 0.8 g/dL (0.7-1.3); GAMMA 0.6 g/dL (0.4-1.8); PROTEIN TOTAL 5.7 g/dL (6.0-8.5); SPEP AG RATIO 1.5 (0.7-1.7)
--- NOTE | 2019-03-17 01:57 | PN ---
DATE: SUBJECTIVE: The patient denies any new medical or neurological complaints. The tremor has been improved and back and hip pain has improved. He has not had any recurrent seizures since admission. OBJECTIVE: GENERAL: Well-developed, well-nourished male, not in acute distress. VITAL SIGNS: Blood pressure ____, respiratory rate 16, pulse is 57, temperature 99.9, oxygen saturation is 97%. HEENT: Normocephalic, atraumatic, otherwise unremarkable. NECK: Supple. Negative for carotid bruit, lymphadenopathy or thyromegaly. LUNGS: Clear to A and P. CARDIOVASCULAR: Regular rate and rhythm, normal S1, S2. There is no S3, S4 or murmur. ABDOMEN: Soft. Bowel sounds positive. EXTREMITIES: Negative for cyanosis, clubbing or edema. NEUROLOGICAL EXAM: Mental Status: The patient is alert and oriented x 3. Speech is fluent. There is no language dysfunction. Cranial nerves otherwise unremarkable. Cranial nerves are intact. Motor examination: No focal muscle bulk was seen. The tone is normal. The strength is 4/5 throughout. Sensory examination revealed normal pinprick, light touch, vibratory and position senses. Deep tendon reflexes were symmetric and hypoactive with absent Achilles responses. Gait: The stance is steady. The coordination is normal. The patient uses a walker for ambulation. Chest CT scan revealed 1 cm right lower lobe solid nodule, probably due to underlying inflammatory process, again it shows liver and renal cysts. IMPRESSION: 1. New onset of seizure. No recurrence since admission. He is on Keppra 500 mg twice a day. 2. Generalized malaise and weakness. 3. Possible underlying viral infections. 4. 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 RECOMMENDATIONS: Continue with current medical care. The patient is neurologically stable. M Moses BOWEN MD DR: TOMAS/deacon JOB#: [id number] / [id number]
== END 2019-03-16 12:30 | disposition home or self-care (01) | DRG 871 ==
LOC: ER 07:22 → ICU 11:19
PROVIDERS: ADMIT Family Medicine; ATTEND Family Medicine
DX: A41.9 Sepsis, unspecified organism (principal); I21.A1 Myocardial infarction type 2; N17.0 Acute kidney failure with tubular necrosis; F05 Delirium due to known physiological condition; E87.6 Hypokalemia; N28.9 Disorder of kidney and ureter, unspecified; B34.9 Viral infection, unspecified; D50.9 Iron deficiency anemia, unspecified; E78.5 Hyperlipidemia, unspecified; G40.409 Other generalized epilepsy and epileptic syndromes, not intractable, without status epilepticus; G89.29 Other chronic pain; F41.9 Anxiety disorder, unspecified; I10 Essential (primary) hypertension; Z79.01 Long term (current) use of anticoagulants; Z79.899 Other long term (current) drug therapy; Z80.0 Family history of malignant neoplasm of digestive organs; Z80.42 Family history of malignant neoplasm of prostate; Z80.7 Family history of other malignant neoplasms of lymphoid, hematopoietic and related tissues
CPT/HCPCS: 36415; 36600; 70450; 71045; 71250; 74176; 78582; 80048; 80053; 80202; 80307; 81001; 82140; 82550; 82553; 82803; 83540; 83550; 83605; 83690; 83735; 83880; 84145; 84165; 84443; 84484; 85025; 85379; 85610; 85730; 86140; 87040; 87804; 93005; 93880; 93970; 94640; 96361; 96365; 96374; 96375; A9540; A9558; J1650; J1885; J1953; J2060; J2360; J2405; J2543; J3370; J7040; 99285-25; J7030